=== PATIENT | female | born 1960 | race Caucasian/White ===

== ENCOUNTER → 2016-11-22 | Outpatient (CLI) | payer BC ==
--- NOTE | 2016-11-22 12:35 | XR ---
"EXAMINATION TYPE: XR hand complete LT DATE OF EXAM: 11/22/2016 COMPARISON: NONE HISTORY: Pain TECHNIQUE: Three views are submitted. FINDINGS: The osseous structures are intact. There is narrowing of the PIP, DIP and MCP joints of all digits. M ild subluxation the first digit proximal phalanx relative the metacarpal. There is a subtle lucency a t the base of the middle phalanx fourth digit.. IMPRESSION: 1. Findings suggestive of a volar plate hairline fracture base middle phalanx fourth digit. Correlate with point tenderness. 2. Diffuse arthropathy. A Yellow message has been communicated to Alfonso Dao MD via the [employer] | Critical Result sy stem on 11/22/2016 12:33 PM, Message ID [id number]."
== END ==
LOC: RADXRMAIN 11:23
PROVIDERS: ATTEND Internal Medicine Geriatric Medicine
DX: M19.042 Primary osteoarthritis, left hand (principal)

== ENCOUNTER → 2016-12-16 | Outpatient (CLI) | payer BC ==
[2016-12-16 07:51] LABS: Basophils % (A) 1 %; CH 32.3; Eosinophils # (A) 0.2 k/uL (0-0.7); Eosinophils % (A) 3 %; HCT 41.3 % (34.0-46.0); HDW 2.56; HGB 13.9 gm/dL (11.4-16.0); Luc # (Auto) 0.13; Luc % (Auto) 2; Lymphocytes # (A) 1.6 k/uL (1.0-4.8); Lymphocytes % (A) 29 %; MCH 32.3 pg (25.0-35.0); MCHC 33.7 g/dL (31.0-37.0); MCV 95.6 fL (80.0-100.0); Mean Platelet Volume 6.6; Monocytes # (A) 0.4 k/uL (0-1.0); Monocytes % (A) 6 %; Neutrophils # (A) 3.3 k/uL (1.3-7.7); Neutrophils % (A) 59 %; RBC 4.32 m/uL (3.80-5.40); RDW 12.6 % (11.5-15.5); WBC 5.6 k/uL (3.8-10.6); WBC (Perox) 5.95
[2016-12-16 08:21] LABS: ALT 54 U/L (9-52); AST 36 U/L (14-36); Alkaline Phosphatase 97 U/L (38-126); Anion Gap 10 mmol/L; Blood Urea Nitrogen 17 mg/dL (7-17); Calcium 10.3 mg/dL (8.4-10.2); Carbon Dioxide 26 mmol/L (22-30); Chloride 103 mmol/L (98-107); Cholesterol 142 mg/dL (<200); Glucose 99 mg/dL (74-99); HDL Cholesterol 58 mg/dL (40-60); Non-African American GFR(MDRD) 54 (>60 ml/min/1.73 sqM); Potassium 4.3 mmol/L (3.5-5.1); Sodium 139 mmol/L (137-145); Total Bilirubin 0.9 mg/dL (0.2-1.3); Total Protein 7.4 g/dL (6.3-8.2)
[2016-12-16 11:15] LABS: Hemoglobin A1C 5.2 % (4.2-6.1)
== END | disposition home or self-care (01) ==
LOC: LABWHC1 07:26
PROVIDERS: ATTEND Internal Medicine Geriatric Medicine
DX: E55.9 Vitamin D deficiency, unspecified (principal); I25.10 Atherosclerotic heart disease of native coronary artery without angina pectoris; E78.00 Pure hypercholesterolemia, unspecified; E03.9 Hypothyroidism, unspecified; R73.9 Hyperglycemia, unspecified
CPT/HCPCS: 36415; 80053; 80061; 82306; 83036; 84439; 84443; 85025

== ENCOUNTER → 2017-02-05 | Outpatient (CLI) | payer BC ==
--- NOTE | 2017-02-06 14:05 | MM ---
Reason for exam: screening (asymptomatic). Last mammogram was performed 1 year ago. History: Patient is postmenopausal, history of other cancer, and is nulliparous. Physical Findings: A clinical breast exam by your physician is recommended on an annual basis and results should be correlated with mammographic findings. MG Screening Mammo w CAD Bilateral CC and MLO view(s) were taken. Prior study comparison: February 05, 2016, bilateral MG 3d screening mammo w/cad. February 03, 2015, bilateral MG 3d screening mammo w/cad. The breast tissue is heterogeneously dense. This may lower the sensitivity of mammography. No significant changes when compared with prior studies. ASSESSMENT: Benign, BI-RAD 2 RECOMMENDATION: Routine screening mammogram of both breasts in 1 year.
== END | disposition home or self-care (01) ==
LOC: RADMAMWWP 07:56
PROVIDERS: ATTEND Internal Medicine Geriatric Medicine
DX: Z12.31 Encounter for screening mammogram for malignant neoplasm of breast (principal)

== ENCOUNTER → 2017-11-21 | Outpatient (CLI) | payer BC ==
[2017-11-21 07:48] LABS: Basophils % (A) 1 %; Eosinophils # (A) 0.3 k/uL (0-0.7); Eosinophils % (A) 5 %; HCT 41.2 % (34.0-46.0); HGB 13.9 gm/dL (11.4-16.0); Lymphocytes # (A) 1.3 k/uL (1.0-4.8); Lymphocytes % (A) 21 %; MCH 31.1 pg (25.0-35.0); MCHC 33.7 g/dL (31.0-37.0); MCV 92.2 fL (80.0-100.0); Mean Platelet Volume 7.1; Monocytes # (A) 0.4 k/uL (0-1.0); Monocytes % (A) 7 %; Neutrophils # (A) 3.9 k/uL (1.3-7.7); Neutrophils % (A) 65 %; Platelet Count 247 k/uL (150-450); RBC 4.47 m/uL (3.80-5.40); RDW 12.4 % (11.5-15.5)
[2017-11-21 08:12] LABS: Potassium 4.7 mmol/L (3.5-5.1)
[2017-11-21 08:13] LABS: Albumin 4.2 g/dL (3.5-5.0); Calcium 10.2 mg/dL (8.4-10.2); Total Bilirubin 0.8 mg/dL (0.2-1.3); Total Protein 7.1 g/dL (6.3-8.2)
[2017-11-21 08:23] LABS: T4, Free (Free Thyroxine) 0.87 ng/dL (0.78-2.19)
[2017-11-21 15:57] LABS: Hemoglobin A1C 5.5 % (4.0-6.0)
== END | disposition home or self-care (01) ==
LOC: LABWHC1 07:29
PROVIDERS: ATTEND Internal Medicine Geriatric Medicine
DX: I10 Essential (primary) hypertension (principal); E78.00 Pure hypercholesterolemia, unspecified; E03.9 Hypothyroidism, unspecified; R73.9 Hyperglycemia, unspecified
CPT/HCPCS: 36415; 80053; 80061; 83036; 84439; 84443; 85025

== ENCOUNTER → 2018-02-06 | Outpatient (CLI) | payer BC ==
--- NOTE | 2018-02-06 11:45 | MM ---
Reason for exam: screening (asymptomatic). Last mammogram was performed 1 year ago. History: Patient is postmenopausal, history of other cancer, and is nulliparous. Physical Findings: A clinical breast exam by your physician is recommended on an annual basis and results should be correlated with mammographic findings. MG 3D Screening Mammo W/Cad Bilateral CC and MLO view(s) were taken. Prior study comparison: February 05, 2017, bilateral MG screening mammo w CAD. February 05, 2016, bilateral MG 3d screening mammo w/cad. The breast tissue is heterogeneously dense. This may lower the sensitivity of mammography. There are benign appearing round calcifications bilaterally. There is no discrete abnormality. ASSESSMENT: Benign, BI-RAD 2 RECOMMENDATION: Routine screening mammogram of both breasts in 1 year.
== END ==
LOC: RADMAMWWP 06:57
PROVIDERS: ATTEND Internal Medicine Geriatric Medicine
DX: Z12.31 Encounter for screening mammogram for malignant neoplasm of breast (principal)
CPT/HCPCS: 77063; 77067

== ENCOUNTER 2018-05-21 10:45 | Emergency (ER) | payer BC ==
[2018-05-21 11:07] VITALS: TEMP 98.9
--- NOTE | 2018-05-21 11:59 | ED ---
General Adult HPI - General Chief complaint: Recheck/Abnormal Lab/Rx Stated complaint: High Blood Pressure Source: patient, family, RN notes reviewed Mode of arrival: wheelchair Limitations: no limitations - History of Present Illness Initial comments: Patient is a pleasant 57-year-old female presenting to the emergency Department with complaints of high blood pressure. Onset of symptoms was this morning. Blood pressure was as high as 190/108. Heart rate was 102. Patient did check this several times. Patient admits to not sleeping well last night. No chest pain. No dyspnea. Patient states she does routinely check her blood pressure and this is higher than normal for her. - Related Data Home Medications Medication Instructions Recorded Confirmed Aspirin 162 mg PO HS 03/06/14 05/21/18 Cholecalciferol [Vitamin D3] 5,000 unit PO HS 03/06/14 05/21/18 Citalopram Hydrobromide [CeleXA] 10 mg PO HS 03/06/14 05/21/18 Levothyroxine Sodium [Synthroid] 50 mcg PO DAILY 03/06/14 05/21/18 Lisinopril [Zestril] 10 mg PO HS 03/06/14 05/21/18 Metoprolol Tartrate [Lopressor] 12.5 mg PO DAILY 03/06/14 05/21/18 Multivitamins, Thera [Multivitamin] 1 tab PO DAILY 03/06/14 05/21/18 Nitroglycerin Sl Tabs [Nitrostat] 0.4 mg SUBLINGUAL Q5M PRN 03/06/14 05/21/18 [place]-3 Fatty Acids/Fish Oil [Fish 3 cap PO DAILY 03/06/14 05/21/18 Oil 1,000 mg Softgel] Vits A,C,E/Lutein/Minerals 1 tab PO HS 03/06/14 05/21/18 [Ocuvite with Lutein Tablet] Atorvastatin [Lipitor] 10 mg PO DAILY 05/21/18 05/21/18 Lactobacillus Acidophilus 1 tab PO DAILY 05/21/18 05/21/18 [Acidophilus] Ubidecarenone [Co Q-10] 100 mg PO DAILY 05/21/18 05/21/18 Allergies Allergy/AdvReac Type Severity Reaction Status Date / Time candesartan cilexetil Allergy Rash/Hives Verified 05/21/18 11:42 [From [place]] Review of Systems ROS Statement: Those systems with pertinent positive or pertinent negative responses have been documented in the HPI. ROS Other: All systems not noted in ROS Statement are negative. Constitutional: Denies: fever Eyes: Denies: eye pain ENT: Denies: ear pain Respiratory: Denies: cough, dyspnea Cardiovascular: Denies: chest pain Endocrine: Denies: fatigue Gastrointestinal: Denies: abdominal pain Genitourinary: Denies: dysuria Musculoskeletal: Denies: back pain Skin: Denies: rash Neurological: Denies: headache, weakness, confusion Past Medical History Past Medical History: Hyperlipidemia, Hypertension, Thyroid Disorder History of Any Multi-Drug Resistant Organisms: None Reported Past Surgical History: Cholecystectomy, Heart Catheterization With Stent Additional Past Surgical History / Comment(s): colonoscopy, Past Psychological History: No Psychological Hx Reported Smoking Status: Never smoker Past Alcohol Use History: Rare Past Drug Use History: None Reported General Exam Limitations: no limitations General appearance: alert, in no apparent distress Head exam: Present: atraumatic Eye exam: Present: normal appearance, PERRL, EOMI. Absent: nystagmus ENT exam: Present: normal oropharynx Neck exam: Present: normal inspection Respiratory exam: Present: normal lung sounds bilaterally Cardiovascular Exam: Present: regular rate, normal rhythm GI/Abdominal exam: Present: soft. Absent: tenderness Extremities exam: Present: normal inspection. Absent: pedal edema, calf tenderness Neurological exam: Present: alert, oriented X3, CN II-XII intact. Absent: motor sensory deficit Expanded Neurological exam: Present: protecting the airway Speech: Present: fluid speech, expressive aphasia, anomia Cranial nerves: EOM's Intact: Normal Motor strength exam: RUE: 5, LUE: 5, RLE: 5, LLE: 5 Eye Response: (4) open spontaneously Motor Response: (6) obeys commands Verbal Response: (5) oriented Psychiatric exam: Present: normal affect, normal mood Skin exam: Present: normal color Course Vital Signs 05/21/18 05/21/18 05/21/18 11:05 12:00 12:30 Temperature 98.9 F Pulse Rate 73 58 L Respiratory 16 15 Rate Blood Pressure 155/89 132/97 138/81 O2 Sat by Pulse 100 96 Oximetry 05/21/18 13:00 Temperature Pulse Rate 58 L Respiratory 14 Rate Blood Pressure 106/65 O2 Sat by Pulse 96 Oximetry EKG Findings - EKG Comments: EKG Findings:: 6. Cardiac 59. OK 162. QRS 88. QT 408. QTC 43. Normal axis. Normal QRS. No acute ST change. Medical Decision Making - Medical Decision Making Patient reevaluated and updated. Blood pressure improved. - Lab Data Result diagrams: 05/21/18 11:48 05/21/18 11:48 Lab Results 05/21/18 05/21/18 Range/Units 11:48 11:48 WBC 6.5 (3.8-10.6) k/uL RBC 4.33 (3.80-5.40) m/uL Hgb 13.9 (11.4-16.0) gm/dL Hct 39.9 (34.0-46.0) % MCV 92.1 (80.0-100.0) fL MCH 32.0 (25.0-35.0) pg MCHC 34.7 (31.0-37.0) g/dL RDW 12.9 (11.5-15.5) % Plt Count 234 (150-450) k/uL Neutrophils % 72 % Lymphocytes % 17 % Monocytes % 6 % Eosinophils % 3 % Basophils % 0 % Neutrophils # 4.7 (1.3-7.7) k/uL Lymphocytes # 1.1 (1.0-4.8) k/uL Monocytes # 0.4 (0-1.0) k/uL Eosinophils # 0.2 (0-0.7) k/uL Basophils # 0.0 (0-0.2) k/uL Sodium 140 (137-145) mmol/L Potassium 4.6 (3.5-5.1) mmol/L Chloride 106 (98-107) mmol/L Carbon Dioxide 25 (22-30) mmol/L Anion Gap 9 mmol/L BUN 12 (7-17) mg/dL Creatinine 0.84 (0.52-1.04) mg/dL Est GFR (CKD-EPI)AfAm 88 (>60 ml/min/1.73 sqM) Est GFR (CKD-EPI)NonAf 76 (>60 ml/min/1.73 sqM) Glucose 97 (74-99) mg/dL Calcium 10.5 H (8.4-10.2) mg/dL Magnesium 2.1 (1.6-2.3) mg/dL Total Bilirubin 0.6 (0.2-1.3) mg/dL AST 33 (14-36) U/L ALT 48 (9-52) U/L Alkaline Phosphatase 111 (38-126) U/L Total Protein 7.2 (6.3-8.2) g/dL Albumin 4.4 (3.5-5.0) g/dL - Radiology Data Radiology results: image reviewed (Chest x-ray shows no acute process) Disposition Clinical Impression: Episode of hypertension Disposition: HOME SELF-CARE Condition: Stable Instructions (If sedation given, give patient instructions): Hypertension (ED) Additional Instructions: Please follow-up with primary care physician in the next day or 2 for recheck. Return for uncontrolled blood pressure, weakness, chest pain, worsening or changing symptoms or other concerns. Is patient prescribed a controlled substance at d/c from ED?: No Referrals: Alfonso Dao MD [Primary Care Provider] - 1-2 days Time of Disposition: 13:42
[2018-05-21 12:28] LABS: Albumin 4.4 g/dL (3.5-5.0); Calcium 10.5 mg/dL (8.4-10.2); Magnesium 2.1 mg/dL (1.6-2.3); Potassium 4.6 mmol/L (3.5-5.1); Total Bilirubin 0.6 mg/dL (0.2-1.3); Total Protein 7.2 g/dL (6.3-8.2)
[2018-05-21 12:33] LABS: Basophils % (A) 0 %; Eosinophils # (A) 0.2 k/uL (0-0.7); Eosinophils % (A) 3 %; HCT 39.9 % (34.0-46.0); HGB 13.9 gm/dL (11.4-16.0); Lymphocytes # (A) 1.1 k/uL (1.0-4.8); Lymphocytes % (A) 17 %; MCHC 34.7 g/dL (31.0-37.0); MCV 92.1 fL (80.0-100.0); Mean Platelet Volume 6.3; Monocytes # (A) 0.4 k/uL (0-1.0); Monocytes % (A) 6 %; Neutrophils # (A) 4.7 k/uL (1.3-7.7); Neutrophils % (A) 72 %; Platelet Count 234 k/uL (150-450); RBC 4.33 m/uL (3.80-5.40); RDW 12.9 % (11.5-15.5); WBC 6.5 k/uL (3.8-10.6)
--- NOTE | 2018-05-21 12:49 | XR ---
EXAMINATION TYPE: XR chest 2V DATE OF EXAM: 05/21/2018 COMPARISON: NONE TECHNIQUE: PA and lateral views submitted. HISTORY: Hypertension FINDINGS: The lungs are clear and there is no pneumothorax, pleural effusion, or focal pneumonia. Degenerativ e change spine. Surgical clips in the abdomen. No overt failure. IMPRESSION: 1. No acute process.
[2018-05-21 13:59] VITALS: BP 119/76; PULSE 70; RESP 16
== END 2018-05-21 13:57 | disposition home or self-care (01) ==
LOC: EC 10:45
DX: I10 Essential (primary) hypertension (principal); E78.5 Hyperlipidemia, unspecified; E07.9 Disorder of thyroid, unspecified; Z88.8 Allergy status to other drugs, medicaments and biological substances; Z79.82 Long term (current) use of aspirin; Z79.890 Hormone replacement therapy; Z79.899 Other long term (current) drug therapy; Z95.5 Presence of coronary angioplasty implant and graft
CPT/HCPCS: 36415; 71046; 80053; 83735; 85025; 93005; 99283

== ENCOUNTER → 2018-07-20 | Outpatient (CLI) | payer BC ==
[2018-07-20 08:37] LABS: Basophils % (A) 1 %; Eosinophils # (A) 0.2 k/uL (0-0.7); Eosinophils % (A) 3 %; HCT 40.8 % (34.0-46.0); HGB 13.9 gm/dL (11.4-16.0); Lymphocytes # (A) 1.7 k/uL (1.0-4.8); Lymphocytes % (A) 30 %; MCH 31.9 pg (25.0-35.0); MCHC 34.1 g/dL (31.0-37.0); MCV 93.3 fL (80.0-100.0); Mean Platelet Volume 6.5; Monocytes # (A) 0.4 k/uL (0-1.0); Monocytes % (A) 6 %; Neutrophils # (A) 3.4 k/uL (1.3-7.7); Neutrophils % (A) 57 %; Platelet Count 270 k/uL (150-450); RBC 4.38 m/uL (3.80-5.40); RDW 12.7 % (11.5-15.5); WBC 5.9 k/uL (3.8-10.6)
[2018-07-20 16:36] LABS: Albumin 4.5 g/dL (3.80-4.90); Albumin/Globulin Ratio 2.25 (1.60-3.17); Anion Gap 8.8 mmol/L (4.00-12.00); Calcium 9.7 mg/dL (8.7-10.3); Carbon Dioxide 26.2 mmol/L (21.6-31.8); LDL Cholesterol,Calculated 70.4 mg/dL (0.0-131.0); Potassium 4.7 mmol/L (3.5-5.5); Total Bilirubin 0.9 mg/dL (0.2-1.2); Total Protein 6.5 g/dL (6.2-8.2); VLDL Calculation 24.6 mg/dL (5.00-40.00)
[2018-07-20 16:44] LABS: T4, Free (Free Thyroxine) 1.1 ng/dL (0.80-1.80)
== END | disposition home or self-care (01) ==
LOC: LABWHC1 07:43
PROVIDERS: ATTEND Internal Medicine Geriatric Medicine
DX: Z00.00 Encounter for general adult medical examination without abnormal findings (principal); I25.118 Atherosclerotic heart disease of native coronary artery with other forms of angina pectoris; R73.9 Hyperglycemia, unspecified
CPT/HCPCS: 36415; 80053; 80061; 83036; 84439; 84443; 85025

== ENCOUNTER → 2019-01-01 | Day surgery (SDC) | payer BC ==
[2018-12-29 16:02] VITALS: BMI 34.4
--- NOTE | 2018-12-31 18:32 | P.GSHP ---
History of Present Illness H&P Date: 01/01/19 CHIEF COMPLAINT: GERD and colon screen HISTORY OF PRESENT ILLNESS: The patient is a 58-year-old female who presents with gastroesophageal reflux disease and need for colon screen. Upper and lower endoscopy were offered for further evaluation and management. PAST MEDICAL HISTORY: Please see list. PAST SURGICAL HISTORY: Please see list. MEDICATIONS: Please see list. ALLERGIES: Please see list. SOCIAL HISTORY: No illicit drug use FAMILY HISTORY: No reports of Crohn disease or ulcerative colitis. REVIEW OF ORGAN SYSTEMS: CONSTITUTIONAL: No reports of fevers or chills. GI: Denies any blood in stools or constipation. PHYSICAL EXAM: VITAL SIGNS: Stable GENERAL: Well-developed pleasant in no acute distress. HEENT: No scleral icterus. Extraocular movements grossly intact. Moist buccal mucosa. NECK: Supple without lymphadenopathy. CHEST: Unlabored respirations. Equal bilateral excursions. CARDIOVASCULAR: Regular rate and rhythm. Distal 2+ pulses. ABDOMEN: Soft, nondistended. MUSCULOSKELETAL: No clubbing, cyanosis, or edema. ASSESSMENT: 1. Gastroesophageal reflux disease 2. Colon screen. PLAN: 1. Recommend proceeding with an upper and lower endoscopy Past Medical History Past Medical History: GERD/Reflux, Hyperlipidemia, Hypertension, Thyroid Disorder History of Any Multi-Drug Resistant Organisms: None Reported Past Surgical History: Cholecystectomy, Heart Catheterization With Stent Additional Past Surgical History / Comment(s): egd,colonoscopy, heart stent Past Anesthesia/Blood Transfusion Reactions: No Reported Reaction, Family History of Problems w/ Anesthesia, Motion Sickness Additional Past Anesthesia/Blood Transfusion Reaction / Comment(s): sister takes a long time coming out of anesthesia Date of Last Stent Placement:: 01-26-2013 Smoking Status: Never smoker - Past Family History Mother Family Medical History: No Reported History Sister(s) Family Medical History: Cancer Additional Family Medical History / Comment(s): liver and colon CA Medications and Allergies Home Medications Medication Instructions Recorded Confirmed Type Aspirin 162 mg PO HS 03/06/14 12/29/18 History Cholecalciferol [Vitamin D3] 5,000 unit PO HS 03/06/14 12/29/18 History Citalopram Hydrobromide [CeleXA] 10 mg PO HS 03/06/14 12/29/18 History Levothyroxine Sodium [Synthroid] 50 mcg PO MOTUWEFRSA 03/06/14 12/29/18 History Lisinopril [Zestril] 10 mg PO HS 03/06/14 12/29/18 History Metoprolol Tartrate [Lopressor] 12.5 mg PO BID 03/06/14 12/29/18 History Multivitamins, Thera [Multivitamin] 1 tab PO DAILY 03/06/14 12/29/18 History Nitroglycerin Sl Tabs [Nitrostat] 0.4 mg SUBLINGUAL Q5M PRN 03/06/14 12/29/18 History [place]-3 Fatty Acids/Fish Oil [Fish 3 cap PO DAILY 03/06/14 12/29/18 History Oil 1,000 mg Softgel] Vits A,C,E/Lutein/Minerals 1 tab PO HS 03/06/14 12/29/18 History [Ocuvite with Lutein Tablet] Atorvastatin [Lipitor] 10 mg PO HS 05/21/18 12/29/18 History Lactobacillus Acidophilus 1 tab PO DAILY 05/21/18 12/29/18 History [Acidophilus] Ubidecarenone [Co Q-10] 100 mg PO DAILY 05/21/18 12/29/18 History Levothyroxine Sodium [Synthroid] 75 mcg PO SUTH 12/29/18 12/29/18 History Pantoprazole Sodium [Protonix] 20 mg PO DAILY 12/29/18 12/29/18 History Allergies Allergy/AdvReac Type Severity Reaction Status Date / Time candesartan cilexetil Allergy Rash/Hives Verified 12/29/18 15:54 [From Eric]
[~2019-01-01] MED LIST: LACTATED RINGERS 1,000 ML IV SCH; LIDOCAINE 1% 20 ML VIAL (10MG/ML) FOR IV START INTRADERMA PRN; PROPOFOL 10 MG/ML 20 ML VIAL IV ONE
[2019-01-01 06:41] VITALS: TEMP 97.5
--- NOTE | 2019-01-01 07:40 | P.PCN ---
Date of Procedure: 01/01/19 Description of Procedure: PREOPERATIVE DIAGNOSIS: Gastroesophageal reflux disease. POSTOPERATIVE DIAGNOSIS: Gastritis. Gastroesophageal reflux disease. OPERATION: Esophagogastroduodenoscopy with biopsies along antrum. SURGEON: Flor Badillo MD ANESTHESIA: MAC. INDICATIONS: The patient is a 58-year-old female who presents with a history of reflux disease. Benefits and risks of the procedure were described. Informed consent was obtained. DESCRIPTION: The patient was brought into the endoscopy suite and laid in the left lateral decubitus position. An Olympus gastroscope was passed along the posterior oropharynx down to the distal esophagus where the squamocolumnar junction was encountered at 36 cm from the incisors. The stomach was entered and no bile reflux was found. Additional findings are listed below. Biopsies with cold forceps were obtained of the antrum. The first through third portion of the duodenum was examined and unremarkable. Hypertensive pylorus identified. Retroflexion of the scope confirmed Hill grade 2 lower esophageal valve. The squamocolumnar junction demonstrated LA grade B erosive esophagitis. The stomach was desufflated. The patient tolerated the procedure well. FINDINGS: Squamocolumnar junction 36 cm from the incisors. Diaphragmatic hiatus at 36 cm. Hill grade 2 lower esophageal valve. LA grade A erosive esophagitis. No active duodenitis. Chronic gastritis Hypertensive pylorus identified RECOMMENDATIONS: Upper endoscopy as needed.
--- NOTE | 2019-01-01 07:44 | P.PCN ---
Date of Procedure: 01/01/19 Description of Procedure: PREOPERATIVE DIAGNOSIS: Family history of colon cancer, sister Colonoscopy screening. POSTOPERATIVE DIAGNOSIS: Family history of colon cancer, sister Colonoscopy screening. Diverticulosis, scattered. OPERATION: Colonoscopy to the ascending colon. SURGEON: Flor Badillo MD. ANESTHESIA: MAC. INDICATIONS: The patient is a 58-year-old female who presents for colonoscopy screening. Last colonoscopy over 5 years ago. Benefits and risks were described and informed consent was obtained. DESCRIPTION OF PROCEDURE: The patient had undergone Suprep. She had been brought into the operating room and laid in the left lateral decubitus position. After adequate intravenous sed ation, the rectum was examined with 2% lidocaine jelly. No external hemorrhoids were encountered. The rectal tone was within normal limits. No lesions were palpated in the rectal vault. The colon was extremely long and redundant. An Olympus colonoscope was advanced to the ascending colon despite abdominal pressure and provocative maneuvers. The prep was excellent with clear visualization of the mucosal folds. The scope was removed with visualization of each mucosal fold. Scattered diverticulosis was encountered. No colonic polyps were found. No evidence of focal colitis was found. Retroflexion of the scope demonstrated grade 1 internal hemorrhoids without active bleeding or inflammation. The colon was desufflated. The patient had tolerated the procedure well. Withdrawal time was over 6 minutes. FINDINGS: Aronchick preparation quality scale 1 (1-5) Internal hemorrhoids, grade 1 No external prolapsed hemorrhoids. No arteriovenous malformations. No adenomatous polyps. No focal colitis. RECOMMENDATIONS: Will need completion barium enema Follow-up 5 years, 2023 or Cologuard Plan - Discharge Summary Discharge Rx Participant: No New Discharge Prescriptions: No Action [employer]-3 Fatty Acids/Fish Oil [Fish Oil 1,000 mg Softgel] 3 cap PO DAILY Multivitamins, Thera [Multivitamin] 1 tab PO DAILY Metoprolol Tartrate [Lopressor] 12.5 mg PO BID Lisinopril [Zestril] 10 mg PO HS Levothyroxine Sodium [Synthroid] 50 mcg PO MOTUWEFRSA Citalopram Hydrobromide [CeleXA] 10 mg PO HS Cholecalciferol [Vitamin D3] 5,000 unit PO HS Aspirin 162 mg PO HS Vits A,C,E/Lutein/Minerals [Ocuvite with Lutein Tablet] 1 tab PO HS Nitroglycerin Sl Tabs [Nitrostat] 0.4 mg SUBLINGUAL Q5M PRN PRN Reason: Chest Pain Ubidecarenone [Co Q-10] 100 mg PO DAILY Atorvastatin [Lipitor] 10 mg PO HS Lactobacillus Acidophilus [Acidophilus] 1 tab PO DAILY Levothyroxine Sodium [Synthroid] 75 mcg PO SUTH Pantoprazole Sodium [Protonix] 20 mg PO DAILY Discharge Medication List Aspirin 162 mg PO HS 03/06/14 [History] Cholecalciferol [Vitamin D3] 5,000 unit PO HS 03/06/14 [History] Citalopram Hydrobromide [CeleXA] 10 mg PO HS 03/06/14 [History] Levothyroxine Sodium [Synthroid] 50 mcg PO MOTUWEFRSA 03/06/14 [History] Lisinopril [Zestril] 10 mg PO HS 03/06/14 [History] Metoprolol Tartrate [Lopressor] 12.5 mg PO BID 03/06/14 [History] Multivitamins, Thera [Multivitamin] 1 tab PO DAILY 03/06/14 [History] Nitroglycerin Sl Tabs [Nitrostat] 0.4 mg SUBLINGUAL Q5M PRN 03/06/14 [History] [employer]-3 Fatty Acids/Fish Oil [Fish Oil 1,000 mg Softgel] 3 cap PO DAILY 03/06/14 [History] Vits A,C,E/Lutein/Minerals [Ocuvite with Lutein Tablet] 1 tab PO HS 03/06/14 [History] Atorvastatin [Lipitor] 10 mg PO HS 05/21/18 [History] Lactobacillus Acidophilus [Acidophilus] 1 tab PO DAILY 05/21/18 [History] Ubidecarenone [Co Q-10] 100 mg PO DAILY 05/21/18 [History] Levothyroxine Sodium [Synthroid] 75 mcg PO SUTH 12/29/18 [History] Pantoprazole Sodium [Protonix] 20 mg PO DAILY 12/29/18 [History]
[2019-01-01 08:07] VITALS: BP 125/75; PULSE 56; RESP 18
--- NOTE | 2019-01-01 10:05 | FL ---
EXAMINATION TYPE: FL barium enema DATE OF EXAM: 01/01/2019 COMPARISON: Prior barium enema study June 24, 2011. HISTORY: Incomplete colonoscopy. TECHNIQUE: A double contrast barium enema study is performed. A total of 2 minutes 9 seconds fluoros copic time was utilized during procedure. 22 spot images are saved. FINDINGS: Cavity Pump Operator view of the abdomen shows overall non-obstructive bowel gas pattern. Scattered pelvi c phleboliths are redemonstrated. Surgical clips right upper quadrant are presumed to product of chol ecystectomy. There is successful retrograde filling to the cecum Appendix was filled and appeared normal. The terminal ileum was not refluxed. There is redemonstration of markedly redundant sigmoid colon making evaluation for polyps suboptimal. Occasional scattered colonic diverticula are present including at level of the right colon. No obstr ucting or constricting lesion is seen. There is a tortuous transverse colon noted. IMPRESSION: No obstructing or constricting lesion is evident. Successful filling to the cecum.
== END | disposition home or self-care (01) ==
LOC: ORWHC2ENDO 06:00
PROVIDERS: ATTEND Surgery Plastic and Reconstructive Surgery
DX: Z12.11 Encounter for screening for malignant neoplasm of colon (principal); K57.30 Diverticulosis of large intestine without perforation or abscess without bleeding; K64.0 First degree hemorrhoids; Q43.8 Other specified congenital malformations of intestine; K29.50 Unspecified chronic gastritis without bleeding; K21.0 Gastro-esophageal reflux disease with esophagitis; K22.10 Ulcer of esophagus without bleeding; K31.89 Other diseases of stomach and duodenum; Z80.0 Family history of malignant neoplasm of digestive organs; E78.5 Hyperlipidemia, unspecified; I10 Essential (primary) hypertension; E07.9 Disorder of thyroid, unspecified; Z79.82 Long term (current) use of aspirin; Z79.890 Hormone replacement therapy; Z79.899 Other long term (current) drug therapy; Z90.49 Acquired absence of other specified parts of digestive tract; Z95.5 Presence of coronary angioplasty implant and graft; Z88.8 Allergy status to other drugs, medicaments and biological substances
CPT/HCPCS: 88305; 74270; 43239; J2704; G0105; 45378

== ENCOUNTER → 2019-02-11 | Outpatient (CLI) | payer BC ==
--- NOTE | 2019-02-12 09:28 | MM ---
Reason for exam: screening (asymptomatic). Last mammogram was performed 1 year ago. History: Patient is postmenopausal, history of other cancer, and is nulliparous. Physical Findings: A clinical breast exam by your physician is recommended on an annual basis and results should be correlated with mammographic findings. MG 3D Screening Mammo W/Cad Bilateral CC and MLO view(s) were taken. Prior study comparison: February 06, 2018, bilateral MG 3d screening mammo w/cad. February 05, 2017, bilateral MG screening mammo w CAD. The breast tissue is heterogeneously dense. This may lower the sensitivity of mammography. Medial asymmetric density incompletely disperses on 3D in the right breast, new from older priors. ASSESSMENT: Incomplete: need additional imaging evaluation, BI-RAD 0 RECOMMENDATION: Special view mammogram of the right breast. (3D) If lesion persists on supplemental views, image directed ultrasound is recommended. [facility] will attempt to contact patient to return for supplemental views and ultrasound if indicated.
== END | disposition home or self-care (01) ==
LOC: RADMAMWWP 06:50
PROVIDERS: ATTEND Internal Medicine Geriatric Medicine
DX: Z12.31 Encounter for screening mammogram for malignant neoplasm of breast (principal)
CPT/HCPCS: 77063; 77067

== ENCOUNTER → 2019-02-11 | Outpatient (CLI) | payer BC ==
--- NOTE | 2019-02-11 22:31 | CONS ---
CONSULTATION DATE OF SERVICE: 02/11/2019 58-year-old lady has been evaluated in the sleep center for possible obstructive sleep apnea-hypopnea syndrome. HISTORY OF PRESENT ILLNESS/SLEEP WAKE EVALUATION: SLEEP SCHEDULE: Patient's usual sleep schedule from 10 to 11 pm until 5 or 7 am and on weekdays from from around 11 to midnight until 8 or 9 a.m. on weekends. FALLING ASLEEP: No problem with falling asleep. No TV in bedroom. DURING SLEEP: She sleeps in different positions and according to her , she has loud snoring and witnessed episodes of stopped breathing during sleep. She also has symptoms of restless legs, sleep talking, and sweating. She wakes up from sleep once with nocturia. DURING THE DAY/SLEEP WAKE EVALUATION: In the morning she wakes up tired, falling asleep during the day, has episodes of irritability. [place] Sleepiness Scale significantly increased to 18. She has taken naps once a day, usually around 6-7:00 pm. Usually no vivid dreams during naps. No history of hypnagogic hallucinations, sleep paralysis or cataplexy. PAST MEDICAL HISTORY: Positive for hypertension, coronary artery disease, hyperlipidemia, hypothyroidism. PAST SURGICAL HISTORY: Stent insertion to coronary arteries, cholecystectomy, ganglion cyst removed. MEDICATIONS: Metoprolol, levothyroxine, atorvastatin, lisinopril, citalopram, aspirin, and pantoprazole. SOCIAL HISTORY: Negative for smoking. Alcohol consumption rarely. FAMILY HISTORY: Hypertension, angina, heart problems, hyperlipidemia, stroke, sleep apnea, headaches, cancer, thyroid problems, diabetes, restless legs during. PHYSICAL EXAM: Patient in no distress. BP is 138/59, HR 78, RR 16, height 5 feet 1 -1/4 inches, weight 194.8 pounds, body mass index 34.7, temperature 98.4, oxygen saturation on room air 96%. Oropharynx: Low position of soft palate. Mallampati 3. Restriction of nasal breathing. Neck 15.5 inches in circumference. NECK: Supple, no JVD. Thyroid is not palpable. LUNGS: Clear to percussion and to auscultation. Good air exchange. No wheezing or rhonchi. HEART: S1, S2 regular. No murmurs, gallops, or rubs. ABDOMEN: Slightly obese. Soft and nontender. Bowel sounds are present. No organomegaly appreciated. EXTREMITIES: No clubbing or cyanosis. RADIOTELEGRAPHIST: Awake, alert, and oriented X3. Cranial nerves 2 to 7 intact. There is no fasciculation or atrophy. noted. No focal deficits observed. IMPRESSION: 1. Snoring witnessed episodes of stopped breathing during sleep. Low position of soft palate, Mallampati 3, feeling tiredness and sleepiness during the day. significant increasing Wainwright Sleepiness Scale to 18. Obstructive sleep apnea- hypopnea syndrome. 2. Hypertension. 3. Coronary artery disease, status post stent insertion. 4. Hyperlipidemia. 5. Hypothyroidism. 6. Status post cholecystectomy. 7. Status post ganglion cyst removed. PLAN: 1. Polysomnography for evaluation of patient's breathing during sleep. 2. CPAP/BiPAP titration if sleep study confirms obstructive sleep apnea-hypopnea syndrome. 3. Preferable position during sleep on the side. 4. No driving if patient feels any sleepiness. 5. I will see patient for follow up visit to explain results of testing and following plan. Thank you very much for referring this patient for consultation. Sincerely, Fausto Hatch MD, PhD, FAASM Diplomat of [place] [place] [employer] Computer Aided Design Technician of [facility] [place] MMODL / IJN: [id number] /
== END ==
LOC: SLEEP 15:40
PROVIDERS: ATTEND Internal Medicine
DX: G47.33 Obstructive sleep apnea (adult) (pediatric) (principal); I10 Essential (primary) hypertension; I25.10 Atherosclerotic heart disease of native coronary artery without angina pectoris; E78.5 Hyperlipidemia, unspecified; E03.9 Hypothyroidism, unspecified; Z90.49 Acquired absence of other specified parts of digestive tract; Z98.890 Other specified postprocedural states; Z79.899 Other long term (current) drug therapy; Z95.5 Presence of coronary angioplasty implant and graft; Z79.82 Long term (current) use of aspirin

== ENCOUNTER → 2019-02-19 | Outpatient (CLI) | payer BC ==
--- NOTE | 2019-02-22 08:10 | MM ---
Reason for exam: additional evaluation requested from abnormal screening. Last mammogram was performed less than 1 month ago. History: Patient is postmenopausal, history of other cancer, and is nulliparous. Took hormonal contraceptives beginning at age 16. Physical Findings: Nurse did not find any significant physical abnormalities on exam. MG 3D Work Up W/Cad RT Spot compression CC and LM view(s) were taken of the right breast. Prior study comparison: February 11, 2019, bilateral MG 3d screening mammo w/cad. February 06, 2018, bilateral MG 3d screening mammo w/cad. The breast tissue is heterogeneously dense. This may lower the sensitivity of mammography. There is no discrete abnormality including area of concern. These results were verbally communicated with the patient and result sheet given to the patient on 02/19/19. ASSESSMENT: Probably benign, BI-RAD 3 RECOMMENDATION: Follow-up diagnostic mammogram of the right breast in 6 months.
== END ==
LOC: RADMAMWWP 14:55
PROVIDERS: ATTEND Internal Medicine Geriatric Medicine
DX: R92.8 Other abnormal and inconclusive findings on diagnostic imaging of breast (principal)
CPT/HCPCS: 77061; 77065

== ENCOUNTER → 2019-03-16 | Outpatient (CLI) | payer BC ==
[2019-03-16 08:01] LABS: Basophils % (A) 1 %; Eosinophils # (A) 0.2 k/uL (0-0.7); Eosinophils % (A) 4 %; HCT 37.9 % (34.0-46.0); HGB 13.3 gm/dL (11.4-16.0); Lymphocytes # (A) 1.7 k/uL (1.0-4.8); Lymphocytes % (A) 28 %; MCH 32.2 pg (25.0-35.0); MCHC 35.2 g/dL (31.0-37.0); MCV 91.5 fL (80.0-100.0); Mean Platelet Volume 6.8; Monocytes # (A) 0.3 k/uL (0-1.0); Monocytes % (A) 6 %; Neutrophils # (A) 3.5 k/uL (1.3-7.7); Neutrophils % (A) 59 %; Platelet Count 252 k/uL (150-450); RBC 4.14 m/uL (3.80-5.40); RDW 12.3 % (11.5-15.5)
[2019-03-16 12:01] LABS: African American GFR (CKD) 80.5 (60.0-200.0); Albumin 4.1 g/dL (3.80-4.90); Albumin/Globulin Ratio 2.05 (1.60-3.17); Anion Gap 5.6 mmol/L (4.00-12.00); BUN/Creat Ratio 17.78 Ratio (12.00-20.00); Calcium 9.5 mg/dL (8.7-10.3); Carbon Dioxide 25.4 mmol/L (21.6-31.8); Chol/HDL Ratio 2.8; LDL Cholesterol,Calculated 61.6 mg/dL (0.0-131.0); Non-African American GFR(CKD) 69.5 (60.0-200.0); Potassium 4.4 mmol/L (3.5-5.5); Total Bilirubin 0.6 mg/dL (0.2-1.2); Total Protein 6.1 g/dL (6.2-8.2); VLDL Calculation 28.4 mg/dL (5.00-40.00)
== END | disposition home or self-care (01) ==
LOC: LABWHC1 07:14
PROVIDERS: ATTEND Internal Medicine Geriatric Medicine
DX: I25.118 Atherosclerotic heart disease of native coronary artery with other forms of angina pectoris (principal); R73.9 Hyperglycemia, unspecified; E03.9 Hypothyroidism, unspecified
CPT/HCPCS: 36415; 80053; 80061; 83036; 84439; 84443; 85025

== ENCOUNTER → 2019-09-08 | Outpatient (CLI) | payer BC ==
--- NOTE | 2019-09-08 19:02 | SFUN ---
SLEEP CENTER FOLLOW UP NOTE DATE OF SERVICE: 09/08/2019 This patient is a 59-year-old lady who has been followed in Sleep Center for treatment of obstructive sleep apnea-hypopnea syndrome. Recently the patient had a diagnostic sleep study which showed severe sleep apnea and then she had CPAP titration and her respiration was normalized. Today is her first visit after being started on treatment with CPAP. Patient is able to use the machine without significant problems, using it all night. Sometimes she believes she opens her mouth. She has nasal pillows and some episodes of snoring. Her [place] Sleepiness Scale today is 5. I checked the patient's CPAP unit. Range of pressure is from 5 to 14. Usage is 30/30 nights for more than 4 hours. Average usage is 6.6 hours per night. Apnea-hypopnea index 4.6, which is in normal range. Leak up to 20 L/minute. Again, patient possibly opens her mouth. MEDICATIONS: Metoprolol, levothyroxine, atorvastatin, lisinopril, citalopram, aspirin, pantoprazole. PHYSICAL EXAMINATION: GENERAL: A pleasant patient in no distress. VITAL SIGNS: BP 143/77, HR 64, RR 16, weight 191, temperature 98.1. Oxygen saturation at room air 98%. HEENT: PERRLA, EOMI. Evaluation of oropharynx showed tongue protrudes midline. NECK: Supple. No JVD. Thyroid is not palpable. LUNGS: Clear to percussion and to auscultation. Good air exchange. No wheezing or rhonchi. HEART: S1, S2 regular. No murmurs, gallops or rubs. ABDOMEN: Soft and nontender. Bowel sounds are present. No organomegaly. EXTREMITIES: No clubbing or cyanosis. OUTGOING INSPECTOR: Awake, alert, and oriented X3. Cranial nerves 2 to 7 intact. There is no fasciculation or atrophy. noted. No focal deficits observed. IMPRESSION: 1. Severe obstructive sleep apnea-hypopnea syndrome. The patient demonstrated good compliance with treatment, benefitting from treatment. 2. Periodic limb movements during diagnostic night. 3. Hypertension. 4. Coronary artery disease. 5. Hyperlipidemia. 6. Hypothyroidism. 7. Status post cholecystectomy. PLAN: 1. Prescription for chin strap. 2. Continue to use CPAP equipment every night. 3. Losing weight. 4. Sleep hygiene with regular time in bed for at least 7-1/2 to 8 hours. 5. No driving if feeling sleepiness. 6. Follow-up visit in 6 months, or earlier if patient has any problems. Thank you very much for allowing me to participate in the management of your patient. Sincerely, Fausto Hatch MD, PhD, FAASM Diplomat of [place] Board of Medical Specialties [place] Board of Internal Medicine Numerical Tool Programmer of [facility] [place] MMODL / OFELIAN: [id number] /
== END | disposition home or self-care (01) ==
LOC: SLEEP 15:41
PROVIDERS: ATTEND Internal Medicine
DX: G47.33 Obstructive sleep apnea (adult) (pediatric) (principal); I10 Essential (primary) hypertension; I25.10 Atherosclerotic heart disease of native coronary artery without angina pectoris; E78.5 Hyperlipidemia, unspecified; E03.9 Hypothyroidism, unspecified; Z90.49 Acquired absence of other specified parts of digestive tract; G47.61 Periodic limb movement disorder; Z79.82 Long term (current) use of aspirin; Z79.899 Other long term (current) drug therapy

== ENCOUNTER → 2019-10-21 | Outpatient (CLI) | payer BC ==
--- NOTE | 2019-10-22 09:56 | MM ---
Reason for exam: follow-up at short interval from prior study. Last mammogram was performed 8 months ago. History: Patient is postmenopausal, history of other cancer, and is nulliparous. Took hormonal contraceptives for 22 years beginning at age 16. Physical Findings: Nurse did not find any significant physical abnormalities on exam. MG 3D Diag Mammo W/Cad RT CC and MLO view(s) were taken of the right breast. Prior study comparison: February 19, 2019, right breast MG 3d work up w/cad RT. February 11, 2019, bilateral MG 3d screening mammo w/cad. The breast tissue is heterogeneously dense. This may lower the sensitivity of mammography. There is no discrete abnormality. No significant new findings when compared with previous films. These results were verbally communicated with the patient and result sheet given to the patient on 10/21/19. ASSESSMENT: Benign, BI-RAD 2 RECOMMENDATION: Return to routine screening mammogram schedule for both breasts. Back on schedule for January 2020.
== END | disposition home or self-care (01) ==
LOC: RADMAMWWP 10:58
PROVIDERS: ATTEND Internal Medicine Geriatric Medicine
DX: R92.2 Inconclusive mammogram (principal)
CPT/HCPCS: 77061; 77065

== ENCOUNTER → 2020-03-02 | Outpatient (CLI) | payer BC ==
--- NOTE | 2020-03-02 17:50 | SFUN ---
SLEEP CENTER FOLLOW UP NOTE DATE OF SERVICE: 03/02/2020 This patient is a 59-year-old lady who has been followed in Sleep Center for treatment of obstructive sleep apnea-hypopnea syndrome. The patient successfully is continuing to use her CPAP equipment every night. She does not complain of any problems with the mask fitting, pressure or humidification. [place] Sleepiness Scale today is 10, which is borderline. The patient reported that she was under stress for the last period of time related to the health of her . I checked her CPAP unit. It is in automatic regimen. Range of the pressure is from 5 to 14. The average pressure is 12.4 cm of water. Usage is 28/30 nights for more than 4 hours with average usage 6.1 hours per night, which is good compliance. Leak is 24 L/minute, which is slightly high. Apnea-hypopnea index is 5.0, which is borderline. MEDICATIONS: 1. Aspirin 81 mg once a day. 2. Metoprolol 12.5 mg twice a day. 3. Atorvastatin 10 mg once a day. 4. Levothyroxine 25 mcg once a day, and on and Friday the dose is 12.5 mcg. 5. Citalopram 10 mg once a day. 6. Lisinopril 10 mg once a day. 7. Propranolol 10 mg once a day. 8. Xanax mg on p.r.n. basis. PHYSICAL EXAMINATION: GENERAL: A pleasant patient in no distress. VITAL SIGNS: BP 141/72, HR 78, RR 15, height 5 feet 2 inches, weight 193, BMI 35.2, temperature 97.6, oxygen saturation at room air 97%. HEENT: PERRLA, EOMI. Evaluation of oropharynx showed tongue protrudes midline. NECK: Supple. No JVD. Thyroid is not palpable. LUNGS: Clear to percussion and to auscultation. Good air exchange. No wheezing or rhonchi. HEART: S1, S2 regular. No murmurs, gallops or rubs. ABDOMEN: Soft and nontender. Bowel sounds are present. No organomegaly appreciated. EXTREMITIES: No clubbing or cyanosis. TRANSLATOR AND INTERPRETER: Awake, alert, and oriented X3. Cranial nerves 2 to 7 intact. There is no fasciculation or atrophy. noted. No focal deficits observed. IMPRESSION: 1. Obstructive sleep apnea-hypopnea syndrome in severe range. The patient demonstrated great compliance with treatment, benefitting from treatment. 2. History of periodic limb movements during diagnostic sleep study. No complaints of leg movements at night. 3. Hypertension. 4. Coronary artery disease. 5. Hyperlipidemia. 6. Hypothyroidism. 7. Status post cholecystectomy. PLAN: 1. Patient will continue to use PAP equipment every night for the whole night. 2. Sleep hygiene with regular time in bed for at least 7-1/2 to 8 hours. 3. Precautions related to driving. No driving if feeling sleepiness. 4. I will maintain all necessary prescription for PAP supplies including mask, tube, filters. 5. Watching weight. 6. No driving if feeling sleepiness. 7. Follow-up visit in 6 months or earlier if patient has any problems. Thank you very much for allowing me to participate in the management of your patient. Sincerely, Fausto Hatch MD, PhD, FAASM Diplomat of [place] [employer] Specialties [place] [employer] of Internal Medicine Production Estimator of [facility] [place] MMODL / OFELIAN: [id number] /
== END | disposition home or self-care (01) ==
LOC: SLEEP 16:59
PROVIDERS: ATTEND Internal Medicine
DX: G47.33 Obstructive sleep apnea (adult) (pediatric) (principal); I10 Essential (primary) hypertension; I25.10 Atherosclerotic heart disease of native coronary artery without angina pectoris; E78.5 Hyperlipidemia, unspecified; E03.9 Hypothyroidism, unspecified; Z90.49 Acquired absence of other specified parts of digestive tract; Z79.82 Long term (current) use of aspirin; Z79.890 Hormone replacement therapy; Z79.899 Other long term (current) drug therapy; Z99.89 Dependence on other enabling machines and devices

== ENCOUNTER 2020-03-05 14:03 | Emergency (ER) | payer BC ==
[2020-03-05 14:10] VITALS: BP 146/81; PULSE 84; RESP 18; TEMP 98.7
--- NOTE | 2020-03-05 14:26 | ED ---
Recheck HPI - General Chief Complaint: Recheck/Abnormal Lab/Rx Stated Complaint: COVID Test Time Seen by Provider: 03/05/20 14:12 Source: patient Mode of arrival: ambulatory Limitations: no limitations - History of Present Illness Initial Comments: 59 year female presenting for cc of needs covid swab. pt states her tested positive today. she states that her place of employment needs a covid swab before she can return. patient states that she doesnt have symptoms. patient denies additional concerns - Related Data Home Medications Medication Instructions Recorded Confirmed Aspirin 162 mg PO HS 03/06/14 01/01/19 Cholecalciferol [Vitamin D3] 5,000 unit PO HS 03/06/14 01/01/19 Citalopram Hydrobromide [CeleXA] 10 mg PO HS 03/06/14 01/01/19 Levothyroxine Sodium [Synthroid] 50 mcg PO [id number] 03/06/14 01/01/19 Metoprolol Tartrate [Lopressor] 12.5 mg PO BID 03/06/14 01/01/19 Multivitamins, Thera [Multivitamin] 1 tab PO DAILY 03/06/14 01/01/19 Nitroglycerin Sl Tabs [Nitrostat] 0.4 mg SUBLINGUAL Q5M PRN 03/06/14 01/01/19 [place]-3 Fatty Acids/Fish Oil [Fish 3 cap PO DAILY 03/06/14 01/01/19 Oil 1,000 mg Softgel] Vits A,C,E/Lutein/Minerals 1 tab PO HS 03/06/14 01/01/19 [Ocuvite with Lutein Tablet] lisinopriL [Zestril] 10 mg PO HS 03/06/14 01/01/19 Atorvastatin [Lipitor] 10 mg PO HS 05/21/18 01/01/19 Lactobacillus Acidophilus 1 tab PO DAILY 05/21/18 01/01/19 [Acidophilus] Ubidecarenone [Co Q-10] 100 mg PO DAILY 05/21/18 01/01/19 Levothyroxine Sodium [Synthroid] 75 mcg PO SUTH 12/29/18 01/01/19 Pantoprazole Sodium [Protonix] 20 mg PO DAILY 12/29/18 01/01/19 Allergies Allergy/AdvReac Type Severity Reaction Status Date / Time candesartan cilexetil Allergy Rash/Hives Verified 03/05/20 14:10 [From Atacand] Review of Systems ROS Statement: Those systems with pertinent positive or pertinent negative responses have been documented in the HPI. ROS Other: All systems not noted in ROS Statement are negative. Past Medical History Past Medical History: GERD/Reflux, Hyperlipidemia, Hypertension, Thyroid Disorder History of Any Multi-Drug Resistant Organisms: None Reported Past Surgical History: Cholecystectomy, Heart Catheterization With Stent Additional Past Surgical History / Comment(s): egd,colonoscopy, heart stent Past Anesthesia/Blood Transfusion Reactions: No Reported Reaction, Family History of Problems w/ Anesthesia, Motion Sickness Additional Past Anesthesia/Blood Transfusion Reaction / Comment(s): sister takes a long time coming out of anesthesia Date of Last Stent Placement:: 01-26-2013 Past Psychological History: No Psychological Hx Reported Past Alcohol Use History: Rare Past Drug Use History: None Reported - Past Family History Mother Family Medical History: No Reported History Sister(s) Family Medical History: Cancer Additional Family Medical History / Comment(s): liver and colon CA General Exam - General Exam Comments Initial Comments: General: The patient is awake and alert, in no distress Eye: +3 mm pupils are equal, round,extra-ocular movements are intact. No nystagmus. There is normal conjunctiva bilaterally. No signs of icterus. Respiratory: Normal respiratory rate. Musculoskeletal: Moving all 4 extremities, no obvious deficits. Neurological: A&O x 3. CN II-XII intact grossly, There are no obvious motor or sensory deficits. Coordination appears grossly intact. Speech is normal. Skin: Skin is warm and dry and no rashes or lesions are noted. Psychiatric: Cooperative, appropriate mood & affect, normal judgment. Limitations: no limitations Course Vital Signs 03/05/20 14:08 Temperature 98.7 F Pulse Rate 84 Respiratory 18 Rate Blood Pressure 146/81 O2 Sat by Pulse 98 Oximetry Medical Decision Making - Medical Decision Making She presenting for covert exposure no symptoms PCR pending patient will be notified of results. recommend awaiting results prior to returning to work to prevent spread of disease if she is positive. Disposition Clinical Impression: Exposure to COVID-19 virus Disposition: HOME SELF-CARE Condition: Good Additional Instructions: Please use medication as discussed. Please watch for symptoms and quarantine self for next week. Please return to emergency room if the symptoms increase or worsen or for any other concerns. Is patient prescribed a controlled substance at d/c from ED?: No Referrals: Alfonso Dao MD [Primary Care Provider] - 1-2 days Time of Disposition: 14:26
== END 2020-03-05 14:35 | disposition home or self-care (01) ==
LOC: EC 14:03
DX: U07.1 COVID-19 (principal); K21.9 Gastro-esophageal reflux disease without esophagitis; E78.5 Hyperlipidemia, unspecified; I10 Essential (primary) hypertension; E07.9 Disorder of thyroid, unspecified; Z79.890 Hormone replacement therapy; Z79.899 Other long term (current) drug therapy; Z79.82 Long term (current) use of aspirin; Z95.5 Presence of coronary angioplasty implant and graft; Z90.49 Acquired absence of other specified parts of digestive tract; Z88.8 Allergy status to other drugs, medicaments and biological substances
CPT/HCPCS: 99283; U0003

== ENCOUNTER → 2020-04-05 | Outpatient (CLI) | payer BC ==
--- NOTE | 2020-04-05 11:06 | MM ---
Reason for exam: screening (asymptomatic). Last mammogram was performed 5 months ago. History: Patient is postmenopausal, history of other cancer, and is nulliparous. Took hormonal contraceptives for 22 years beginning at age 16. Physical Findings: A clinical breast exam by your physician is recommended on an annual basis and results should be correlated with mammographic findings. MG 3D Screening Mammo W/Cad Bilateral CC and MLO view(s) were taken. Prior study comparison: October 21, 2019, right breast MG 3d diag mammo w/cad RT. February 19, 2019, right breast MG 3d work up w/cad RT. February 06, 2018, bilateral MG 3d screening mammo w/cad. The breast tissue is heterogeneously dense. This may lower the sensitivity of mammography. There are benign appearing round calcifications bilaterally. There is no discrete abnormality. ASSESSMENT: Benign, BI-RAD 2 RECOMMENDATION: Routine screening mammogram of both breasts in 1 year.
== END | disposition home or self-care (01) ==
LOC: RADMAMWWP 07:02
PROVIDERS: ATTEND Internal Medicine Geriatric Medicine
DX: Z12.31 Encounter for screening mammogram for malignant neoplasm of breast (principal)
CPT/HCPCS: 77063; 77067

== ENCOUNTER → 2020-04-24 | Outpatient (CLI) | payer BC ==
[2020-04-24 15:29] LABS: Basophils # (A) 0.04 X 10*3/uL (0.00-0.10); Basophils % (A) 0.6 %; Eosinophils % (A) 3.1 %; HCT 37.7 % (37.2-46.3); HGB 12.8 g/dL (12.0-15.0); Lymphocytes # (A) 1.52 X 10*3/uL (0.90-5.00); Lymphocytes % (A) 23.5 %; MCH 31.8 pg (27.0-32.0); MCV 93.5 fL (80.0-97.0); Mean Platelet Volume 9.7 fL (9.5-12.2); Monocytes # (A) 0.46 X 10*3/uL (0.20-1.00); Monocytes % (A) 7.1 %; Neutrophils # (A) 4.24 X 10*3/uL (1.80-7.70); Neutrophils % (A) 65.4 %; Platelet Count 216 X 10*3/uL (140-440); RBC 4.03 X 10*6/uL (4.10-5.20); RDW 12.8 % (11.5-14.5); WBC 6.48 X 10*3/uL (4.50-10.00)
[2020-04-24 16:04] LABS: T4, Free (Free Thyroxine) 1.1 ng/dL (0.80-1.80)
[2020-04-24 16:31] LABS: Albumin 4.5 g/dL (3.80-4.90); Albumin/Globulin Ratio 2.14 (1.60-3.17); Anion Gap 8.6 mmol/L (4.00-12.00); BUN/Creat Ratio 16.67 Ratio (12.00-20.00); Carbon Dioxide 27.4 mmol/L (21.6-31.8); Chol/HDL Ratio 3.38; Globulin 2.1 g/dL (1.6-3.3); LDL Cholesterol,Calculated 60.8 mg/dL (0.0-131.0); Potassium 4.4 mmol/L (3.5-5.5); Total Bilirubin 0.8 mg/dL (0.3-1.2); Total Protein 6.6 g/dL (6.2-8.2); VLDL Calculation 32.2 mg/dL (5.00-40.00)
[2020-04-24 17:37] LABS: Hemoglobin A1C 10.7 % (4.0-6.0)
== END | disposition home or self-care (01) ==
LOC: LABWHC1 08:22
PROVIDERS: ATTEND Internal Medicine Geriatric Medicine
DX: E03.9 Hypothyroidism, unspecified (principal); I25.10 Atherosclerotic heart disease of native coronary artery without angina pectoris; R73.9 Hyperglycemia, unspecified
CPT/HCPCS: 36415; 80053; 80061; 83036; 84439; 84443; 85025

== ENCOUNTER → 2020-07-26 | Outpatient (CLI) | payer BC ==
[2020-07-26 14:59] LABS: Basophils # (A) 0.03 X 10*3/uL (0.00-0.10); Basophils % (A) 0.6 %; Eosinophils # (A) 0.33 X 10*3/uL (0.04-0.35); Eosinophils % (A) 6.2 %; HCT 40.9 % (37.2-46.3); HGB 13.3 g/dL (12.0-15.0); Lymphocytes # (A) 1.53 X 10*3/uL (0.90-5.00); Lymphocytes % (A) 28.7 %; MCH 30.2 pg (27.0-32.0); MCHC 32.5 g/dL (32.0-37.0); Mean Platelet Volume 9.1 fL (9.5-12.2); Monocytes # (A) 0.47 X 10*3/uL (0.20-1.00); Monocytes % (A) 8.8 %; Neutrophils # (A) 2.96 X 10*3/uL (1.80-7.70); Neutrophils % (A) 55.3 %; Platelet Count 248 X 10*3/uL (140-440); WBC 5.34 X 10*3/uL (4.50-10.00)
[2020-07-26 19:08] LABS: Hemoglobin A1C 6.5 % (4.0-6.0)
[2020-07-27 02:10] LABS: African American GFR (CKD) 69.9 (60.0-200.0); Albumin 4.6 g/dL (3.80-4.90); Albumin/Globulin Ratio 2.09 (1.60-3.17); Anion Gap 12.4 mmol/L (4.00-12.00); Calcium 10.8 mg/dL (8.7-10.3); Carbon Dioxide 23.6 mmol/L (21.6-31.8); Chol/HDL Ratio 3.05; Globulin 2.2 g/dL (1.6-3.3); LDL Cholesterol,Calculated 62.2 mg/dL (0.0-131.0); Non-African American GFR(CKD) 60.3 (60.0-200.0); Potassium 4.7 mmol/L (3.5-5.5); Total Bilirubin 0.8 mg/dL (0.3-1.2); Total Protein 6.8 g/dL (6.2-8.2); VLDL Calculation 23.8 mg/dL (5.00-40.00)
== END | disposition home or self-care (01) ==
LOC: LABWHC1 07:25
PROVIDERS: ATTEND Internal Medicine Geriatric Medicine
DX: I25.10 Atherosclerotic heart disease of native coronary artery without angina pectoris (principal); E78.2 Mixed hyperlipidemia; E11.65 Type 2 diabetes mellitus with hyperglycemia
CPT/HCPCS: 36415; 80053; 80061; 83036; 84443; 85025

== ENCOUNTER → 2020-08-24 | Outpatient (CLI) | payer BC | END | disposition home or self-care (01) | LOC: LABWHC1 07:25 | PROVIDERS: ATTEND Internal Medicine Geriatric Medicine | DX: E03.9 Hypothyroidism, unspecified (principal) | CPT/HCPCS: 36415; 82310; 83970 ==

== ENCOUNTER → 2020-09-21 | Outpatient (CLI) | payer BC ==
--- NOTE | 2020-09-21 23:28 | SFUN ---
SLEEP CENTER FOLLOW UP NOTE DATE OF SERVICE: 09/21/2020 60-year-old lady has been followed in Sleep Center for treatment of obstructive sleep apnea-hypopnea syndrome. Patient continues to use her CPAP equipment every night for the whole night. [place] Sleepiness Scale today is 8, which is better than during the last visit when it was 10. No problem related to mask fitting, pressure or humidification. I checked CPAP unit. Range of the pressure 5-14, average pressure 12.2, usage 29/30 nights for more than 4 hours, average 6.2 hours per night. Leak is 26 L/minute. Apnea- hypopnea index is 3.1, which is perfect, which is better than during the previous visit where it was 5.0. MEDICATIONS: Metoprolol 25 mg half tablets twice a day. Citalopram 10 mg once a day. Lisinopril 10 mg once a day, pantoprazole 40 mg once a day. 7 mg once a day, zinc vitamins supplement, levothyroxine 50 mcg once a day. PHYSICAL EXAMINATION: GENERAL: Patient in no distress. BP 142/86, HR 60, RR 15, height 5 feet and 2, weight 177, body mass index 32.3, temperature 98.2, oxygen saturation at room air 98%. HEENT: PERRLA, EOMI. Oropharynx low position of soft palate. Mallampati 3. NECK: Supple, no JVD. Thyroid is not palpable. LUNGS: Clear to percussion and to auscultation. Good air exchange. No wheezing or rhonchi. HEART: S1, S2 regular. No murmurs, gallops, or rubs. ABDOMEN: Slightly obese. Soft and nontender. Bowel sounds are present. No organomegaly appreciated. EXTREMITIES: No clubbing or cyanosis. GARMENT MANUFACTURER: Awake, alert, and oriented X3. Cranial nerves 2 to 7 intact. There is no fasciculation or atrophy. noted. No focal deficits observed. IMPRESSION: 1. Obstructive sleep apnea-hypopnea syndrome in severe range. The patient demonstrated good compliance with treatment benefitting from treatment. 2. Periodic limb movements by results of the sleep study. No complaints of leg movements at the present time. 3. Hypertension. 4. Coronary artery disease, status post stent insertion. 5. Hyperlipidemia. 6. Hypothyroidism. 7. Status post cholecystectomy. 8. Status post ganglion cyst removed. PLAN: 1. Patient will continue to use PAP equipment every night for the whole night. 2. Sleep hygiene with regular time in bed for at least 7-1/2 to 8 hours. 3. Precautions related to driving. No driving if feeling sleepiness. 4. I will maintain all necessary prescription for PAP supplies including mask, tube, filters. 5. Watching weight. 6. Follow-up visit in 6 months or earlier if patient has any problems. I spent with the patient and documentation more than 30 minutes. Thank you very much for allowing me to participate in management of your patient. Sincerely, Fausto Hatch MD, PhD, FAASM Diplomat of [place] [employer] Medical Specialties [place] Board of Internal Medicine Supervisor [employer]itting of [facility] [place] MMODL / OFELIAN: [id number] /
== END ==
LOC: SLEEP 16:29
PROVIDERS: ATTEND Internal Medicine
DX: G47.33 Obstructive sleep apnea (adult) (pediatric) (principal); G47.61 Periodic limb movement disorder; I10 Essential (primary) hypertension; I25.10 Atherosclerotic heart disease of native coronary artery without angina pectoris; E78.5 Hyperlipidemia, unspecified; E03.9 Hypothyroidism, unspecified; Z95.1 Presence of aortocoronary bypass graft; Z90.49 Acquired absence of other specified parts of digestive tract; Z98.890 Other specified postprocedural states; Z79.890 Hormone replacement therapy; Z79.899 Other long term (current) drug therapy; Z88.8 Allergy status to other drugs, medicaments and biological substances

== ENCOUNTER → 2020-12-19 | Outpatient (CLI) | payer BC ==
[2020-12-19 11:28] LABS: HCT 38.3 % (37.2-46.3); HGB 13.1 g/dL (12.0-15.0); MCH 31.6 pg (27.0-32.0); MCHC 34.2 g/dL (32.0-37.0); MCV 92.3 fL (80.0-97.0); Mean Platelet Volume 9.2 fL (9.5-12.2); Platelet Count 255 X 10*3/uL (140-440); RBC 4.15 X 10*6/uL (4.10-5.20); RDW 12.2 % (11.5-14.5); WBC 6.18 X 10*3/uL (4.50-10.00)
[2020-12-19 11:55] LABS: Basophils # (A) 0.04 X 10*3/uL (0.00-0.10); Basophils % (A) 0.6 %; Eosinophils # (A) 0.42 X 10*3/uL (0.04-0.35); Eosinophils % (A) 6.8 %; Lymphocytes # (A) 1.95 X 10*3/uL (0.90-5.00); Lymphocytes % (A) 31.6 %; Monocytes # (A) 0.42 X 10*3/uL (0.20-1.00); Monocytes % (A) 6.8 %; Neutrophils # (A) 3.32 X 10*3/uL (1.80-7.70); Neutrophils % (A) 53.7 %
[2020-12-19 12:33] LABS: Hemoglobin A1C 5.4 % (4.0-6.0)
== END | disposition home or self-care (01) ==
LOC: LABWHC1 07:03
PROVIDERS: ATTEND Internal Medicine Geriatric Medicine
DX: I25.10 Atherosclerotic heart disease of native coronary artery without angina pectoris (principal); E11.65 Type 2 diabetes mellitus with hyperglycemia; E03.9 Hypothyroidism, unspecified
CPT/HCPCS: 36415; 80053; 80061; 83036; 84439; 84443; 85025

== ENCOUNTER → 2021-03-29 | Outpatient (CLI) | payer BC ==
--- NOTE | 2021-03-30 09:52 | SFUN ---
SLEEP CENTER FOLLOW UP NOTE DATE OF SERVICE: 03/29/2021 60-year-old lady has been followed in Sleep Center for treatment of obstructive sleep apnea-hypopnea syndrome. Patient continued to use her CPAP equipment every night for the whole night getting her CPAP supplies in time. She is using her nasal pillow mask, but sometimes in the middle of the night she told that she feels discomfort in her nose with this type of nasal pillow mask. [place] Sleepiness Scale today is 6. I checked her CPAP unit, pressure is 5-14 cm of water. Average at 11.3 cm of water, usage / nights. Average 4.6 hours per night. Leak is 19 L/minute which is borderline. Apnea-hypopnea index is 2.0, which is normal range. MEDICATIONS: Metoprolol 25 mg half tablet once a day, citalopram 5 mg once a day, lisinopril 10 mg once a day, pantoprazole 40 mg once a day, levothyroxine 52 mcg #1-1/2 tablet Friday and , alprazolam 0.2 mg as necessary. Vitamins, lutein, magnesium, probiotic, Pepcid. PHYSICAL EXAMINATION: GENERAL: Patient in no distress. BP 132/76, HR 72, RR 14, height 5 feet 2 inches, weight 160.6, body mass index 30.2, temperature 97.0, oxygen saturation at room air 99%. Oropharynx: Low position of soft palate, Mallampati 3. NECK: Supple, no JVD. Thyroid is not palpable. LUNGS: Clear to percussion and to auscultation. Good air exchange. No wheezing or rhonchi. HEART: S1, S2 regular. No murmurs, gallops, or rubs. ABDOMEN: Soft and nontender. Bowel sounds are present. No organomegaly appreciated. EXTREMITIES: No clubbing or cyanosis. OFF PREMISE SERVICE REPRESENTATIVE: Awake, alert, and oriented X3. Cranial nerves 2 to 7 intact. There is no fasciculation or atrophy. noted. No focal deficits observed. IMPRESSION: 1. Obstructive sleep apnea-hypopnea syndrome. Patient demonstrated borderline compliance with treatment, benefitting from treatment. She has some discomfort with nasal pillow mask. 2. History of periodic limb movements during the sleep study. No complaints of leg movements during the night at the present time. 3. Coronary artery disease, status post stent insertion. 4. Hypertension. 5. Hypothyroidism. 6. Hyperlipidemia. 7. Status post cholecystectomy. 8. Status post ganglion cyst removed. PLAN: 1. Prescription for different type of nasal pillow mask, Hanson FX small size. 2. Patient will continue to use PAP equipment every night for the whole night. 3. Sleep hygiene with regular time in bed for at least 7-1/2 to 8 hours. 4. Precautions related to driving. No driving if feeling sleepiness. 5. I will maintain all necessary prescription for PAP supplies including mask, tube, filters. 6. Watching weight. 7. Follow-up visit in 6 months or earlier if patient has any problems. Thank you very much for allowing me to participate in the management of your patient. Sincerely, Fausto Hatch MD, PhD, FAASM Diplomat of [place] [employer] Specialties Sleep Medicine Board of [place] Board of Internal Medicine Outside Solar Sales Consultant of [facility] [place] JEYSON / RADHA: [id number] /
== END ==
LOC: SLEEP 16:47
PROVIDERS: ATTEND Internal Medicine
DX: G47.33 Obstructive sleep apnea (adult) (pediatric) (principal); I25.10 Atherosclerotic heart disease of native coronary artery without angina pectoris; I10 Essential (primary) hypertension; E03.9 Hypothyroidism, unspecified; E78.5 Hyperlipidemia, unspecified; Z90.49 Acquired absence of other specified parts of digestive tract; Z95.5 Presence of coronary angioplasty implant and graft; Z98.890 Other specified postprocedural states; Z79.890 Hormone replacement therapy; Z79.899 Other long term (current) drug therapy; Z88.8 Allergy status to other drugs, medicaments and biological substances

== ENCOUNTER → 2021-04-09 | Outpatient (CLI) | payer BC ==
[2021-04-09 08:01] LABS: Basophils % (A) 1 %; Eosinophils # (A) 0.4 k/uL (0-0.7); Eosinophils % (A) 7 %; HCT 41.1 % (34.0-46.0); HGB 13.4 gm/dL (11.4-16.0); Lymphocytes # (A) 1.5 k/uL (1.0-4.8); Lymphocytes % (A) 27 %; MCH 31.2 pg (25.0-35.0); MCHC 32.7 g/dL (31.0-37.0); MCV 95.4 fL (80.0-100.0); Mean Platelet Volume 7.2; Monocytes # (A) 0.3 k/uL (0-1.0); Monocytes % (A) 6 %; Neutrophils # (A) 3.2 k/uL (1.3-7.7); Neutrophils % (A) 58 %; Platelet Count 230 k/uL (150-450); RDW 12.4 % (11.5-15.5); WBC 5.5 k/uL (3.8-10.6)
[2021-04-09 08:11] LABS: ALT 34 U/L (4-34); AST 34 U/L (14-36); African American GFR (CKD) 75 (>60 ml/min/1.73 sqM); Albumin 4.1 g/dL (3.5-5.0); Albumin/Globulin Ratio 1.5; Alkaline Phosphatase 156 U/L (38-126); Anion Gap 3 mmol/L; Blood Urea Nitrogen 16 mg/dL (7-17); Calcium 10.1 mg/dL (8.4-10.2); Carbon Dioxide 27 mmol/L (22-30); Chloride 106 mmol/L (98-107); Globulin 2.8 g/dL; Glucose 100 mg/dL (74-99); Non-African American GFR(CKD) 65 (>60 ml/min/1.73 sqM); Potassium 4.7 mmol/L (3.5-5.1); Sodium 136 mmol/L (137-145); Total Bilirubin 0.6 mg/dL (0.2-1.3); Total Protein 6.9 g/dL (6.3-8.2)
[2021-04-09 11:18] LABS: Chol/HDL Ratio 2.49 Ratio; LDL Cholesterol,Calculated 58.1 mg/dL (0.0-131.0)
--- NOTE | 2021-04-09 13:32 | MM ---
Reason for exam: screening (asymptomatic). Last mammogram was performed 1 year ago. History: Patient is postmenopausal, history of other cancer, and is nulliparous. Took hormonal contraceptives for 22 years beginning at age 16. Physical Findings: A clinical breast exam by your physician is recommended on an annual basis and results should be correlated with mammographic findings. MG 3D Screening Mammo W/Cad Bilateral CC and MLO view(s) were taken. Prior study comparison: April 05, 2020, bilateral MG 3d screening mammo w/cad. October 21, 2019, right breast MG 3d diag mammo w/cad RT. The breast tissue is heterogeneously dense. This may lower the sensitivity of mammography. There are benign appearing round calcifications bilaterally. There is no discrete abnormality. ASSESSMENT: Benign, BI-RAD 2 RECOMMENDATION: Routine screening mammogram of both breasts in 1 year.
--- NOTE | 2021-04-09 15:22 | BD ---
EXAMINATION TYPE: Axial Bone Density DATE OF EXAM: 04/09/2021 COMPARISON: 02.03.2015 CLINICAL HISTORY: 60 YR OLD FEMALE, ICD-10 CODE: N95.1 MENOPAUSAL Height: 60.5 Weight: 158 FRAX RISK QUESTIONS: NOTHING TO NOTE HERE RISK FACTORS HISTORY OF: Family History of Osteoporosis: YES, MOTHER AND SISTERS NO HIP FX Diet low in dairy products/other sources of calcium: YES Postmenopausal woman: YES AT AGE 50 Hyperparathyroidism: YES, HYPER Adrenal Insufficiency: NO MEDICATIONS: Thyroid Medications: YES, SYNTHROID PRODUCT FOR ABOUT 8 YRS Additional Medications: BP MEDS, CITALOPRAM, XANAX PRN, PROTONIX, STATIN FOR CHOLESTEROL, RYBELSIS FO R DIABETES, VIT D Additional History: HYPERTENSION, ANXIETY, REFLUX, CHOLESTEROL, DIABETES, EXAM MEASUREMENTS: Bone mineral densitometry was performed using the [employer] System. Bone mineral density as measured about the Lumbar spine is: ----- L1-L4(G/cm2): 1.246 T Score Values are as follows: ----- L1: 0.3 ----- L2: 0.1 ----- L3: 1.2 ----- L4: 0.5 ----- L1-L4: 0.6 Bone mineral density has: Decreased -1.6% since study of: 02.03.2015 Bone mineral density about the R hip (g/cm2): 1.092 Bone mineral density about the L hip (g/cm2): 1.085 T Score values are as follows: -----R Neck: -0.7 -----L Neck: -0.7 -----R Total: 0.7 -----L Total: 0.6 Bone mineral density has: Decreased -6.6% since study of: 02.03.2015 FRAX%s: THERE IS A 6.7% CHANCE FOR A MAJOR OSTEOPOROTIC FX AND A 0.3% FOR HIP.....PROBABILITY FOR FX IN 10 YRS TIME IMPRESSION: Normal (Values between +1 and -1 indicate normal bone mass). Consider repeating this study in 5 year s or sooner if there is some new clinical indication. NOTE: T-SCORE=SD OF THE YOUNG ADULT MEAN.
== END ==
LOC: RADMAMWWP 07:01
PROVIDERS: ATTEND Obstetrics & Gynecology
DX: Z12.31 Encounter for screening mammogram for malignant neoplasm of breast (principal); Z78.0 Asymptomatic menopausal state; I25.10 Atherosclerotic heart disease of native coronary artery without angina pectoris; E11.65 Type 2 diabetes mellitus with hyperglycemia
CPT/HCPCS: 36415; 77063; 77067; 77080; 80053; 80061; 83036; 83970; 84443; 85025

== ENCOUNTER → 2021-09-27 | Outpatient (CLI) | payer BC ==
--- NOTE | 2021-09-27 17:05 | P.PN ---
Subjective DATE: 09/27/2021 FOLLOW UP VISIT. Patient with obstructive sleep apnea hypopnea syndrome return to sleep center for follow-up visit. Information from previous visit have been reviewed. Patient is using PAP equipment every night for the whole night, getting PAP supplies in time. The patient does not have significant problems with the mask, PAP unit and humidification. Butler sleepiness scale is for. I checked information from PAP unit. PAP unit pressure 514, average 12 cm H2O. Usage is 95 % for more then 4 hours, average 5.7 hours per night. Leak is 19 l/m, which is in acceptable range. Apnea Hypopnea Index is 2.4, which is normal. MEDICATIONS:1. Aspirin 81 mg once a day 2. Atorvastatin 20 mg once a day 3. Citalopram 10 mg once a day 4. Levothyroxine 50 g once a day 5. Lisinopril 10 mg once a day 6. Metoprolol 25 mg half tablet twice a day 7. Pantoprazole 40 mg once a day 8. Pepcid During physical exam: GENERAL: A pleasant patient without any distress. VITAL SIGNS: BP 120/72, HR 67, RR 16 , weight 162.8, height 5 foot 1-1/4 inches, which he mustn't index 30.5, temperature 97.5, oxygen saturation at room air 97 % . HEENT: PERRLA, EOMI.low position of soft palate, Mallapati 3 . NECK: Supple. No JVD. LUNGS: Clear to percussion and to auscultation. Good air exchange. No wheezing or rhonchi. HEART: S1, S2 regular. ABDOMEN: Soft and nontender. Slightly obese EXTREMITIES: No clubbing or cyanosis. PARAPLANNER: Awake, alert, and oriented x3. No focal deficit. Impressions: 1. Obstructive sleep apnea-hypopnea syndrome. Patient demonstrated great compliance with treatment, benefiting from treatment. 2. Coronary artery disease status post stent insertion. 3. History of periodic limb movements by results of sleep study. No clinical symptoms at the present time. 4. Hypertension. 5. Hypothyroidism. 6. Hyperlipidemia. 7. Status post cholecystectomy. 8. Status post ganglion cyst removed. Plan: 1. Continue using PAP equipment every night for the whole night. 2. To change air filter at least 1-2 times per month. 3. PAP unit should stay lower then position of the head. 4. Advised patient to remove all remaining water from humidifier canister daily and make it dry after each usage. Refill canister with fresh distilled water before each usage. 5. Sleep hygiene with regular time in bed for at least 8 hours. 6. Precautions related to driving. No driving if feel any sleepiness. 7. I will maintain prescription for PAP supplies including mask, tube, filters. 8. Follow up visit in 6 months or earlier if patient has any problems. 9. Watching weight. Thank you very much for allowing me to participate in the management of your patient. Fausto Hatch MD, PhD, FAASM. Diplomat of [place] [employer], Sleep Medicine Board by [place] Financial Services Consultant of [facility] [place]
== END ==
LOC: SLEEP 16:32
PROVIDERS: ATTEND Internal Medicine
DX: G47.33 Obstructive sleep apnea (adult) (pediatric) (principal); I25.10 Atherosclerotic heart disease of native coronary artery without angina pectoris; Z95.5 Presence of coronary angioplasty implant and graft; I10 Essential (primary) hypertension; G47.61 Periodic limb movement disorder; E03.9 Hypothyroidism, unspecified; E78.5 Hyperlipidemia, unspecified; Z90.49 Acquired absence of other specified parts of digestive tract; Z98.890 Other specified postprocedural states; Z99.89 Dependence on other enabling machines and devices; Z79.890 Hormone replacement therapy; Z79.82 Long term (current) use of aspirin; Z88.8 Allergy status to other drugs, medicaments and biological substances
CPT/HCPCS: 99212

== ENCOUNTER → 2021-11-16 | Outpatient (CLI) | payer BC ==
[2021-11-16 11:16] LABS: ALT 34 U/L (8-44); AST 34 U/L (13-35); African American GFR (CKD) 69.4 (60.0-200.0); Albumin 4.5 g/dL (3.8-4.9); Albumin/Globulin Ratio 1.73 (1.60-3.17); Alkaline Phosphatase 124 U/L (41-126); Blood Urea Nitrogen 14.6 mg/dL (9.0-27.0); Calcium 10.5 mg/dL (8.7-10.3); Carbon Dioxide 27.3 mmol/L (20.0-27.5); Chloride 103 mmol/L (96-109); Chol/HDL Ratio 2.68 Ratio; Globulin 2.6 g/dL (1.6-3.3); Glucose 103 mg/dL (70-110); LDL Cholesterol,Calculated 55.2 mg/dL (0.0-131.0); Non-African American GFR(CKD) 59.9 (60.0-200.0); Potassium 4.6 mmol/L (3.5-5.5); Sodium 139 mmol/L (135-145); Total Protein 7.1 g/dL (6.2-8.2)
[2021-11-16 11:32] LABS: Basophils # (A) 0.06 X 10*3/uL (0.00-0.10); Basophils % (A) 0.9 %; Eosinophils % (A) 7.7 %; HCT 40.8 % (37.2-46.3); HGB 13.8 g/dL (12.0-15.0); Immature Grans, Automated 0.3 %; Lymphocytes # (A) 1.94 X 10*3/uL (0.90-5.00); Lymphocytes % (A) 29.8 %; MCH 30.7 pg (27.0-32.0); MCHC 33.8 g/dL (32.0-37.0); MCV 90.7 fL (80.0-97.0); Mean Platelet Volume 8.8 fL (9.5-12.2); Monocytes # (A) 0.47 X 10*3/uL (0.20-1.00); Monocytes % (A) 7.2 %; NRBC Per 100 WBC 0 /100 WBCS (0.0-0.0); Neutrophils # (A) 3.52 X 10*3/uL (1.80-7.70); Neutrophils % (A) 54.1 %; Platelet Count 216 X 10*3/uL (140-440); RDW 12.1 % (11.5-14.5); WBC 6.51 X 10*3/uL (4.50-10.00)
[2021-11-16 20:06] LABS: Microalbumin Creatinine Ratio <30 mg/g Creat (0-30); Urine Creatinine 76.7 mg/dL (28.0-217.0)
== END | disposition home or self-care (01) ==
LOC: LABWHC1 08:03
PROVIDERS: ATTEND Internal Medicine Geriatric Medicine
DX: I25.10 Atherosclerotic heart disease of native coronary artery without angina pectoris (principal); E11.65 Type 2 diabetes mellitus with hyperglycemia
CPT/HCPCS: 36415; 80053; 80061; 82043; 82570; 83036; 84443; 85025

== ENCOUNTER → 2022-04-10 | Outpatient (CLI) | payer BC ==
--- NOTE | 2022-04-11 08:26 | MM ---
Reason for Exam: Screening (asymptomatic). Last screening mammogram was performed 12 month(s) ago. Patient History: Menarche at age 8. Patient has no children. Postmenopausal. Hormonal Contraceptives for 22 years from age 16 until age 38. Risk Values: Mine 5 year model risk: 1.9%. NCI Lifetime model risk: 8.1%. Prior Study Comparison: 10/21/2019 Right Diagnostic Mammogram, [facility]. 04/05/2020 Bilateral Screening Mammogram, [facility]. 04/09/2021 Bilateral Screening Mammogram, [facility]. Tissue Density: The breast tissue is heterogeneously dense. This may lower the sensitivity of mammography. Findings: Analyzed By CAD. There is no suspicious group of microcalcifications or new suspicious mass in either breast. Overall Assessment: Negative, BI-RAD 1 Management: Screening Mammogram of both breasts in 1 year. A clinical breast exam by your physician is recommended on an annual basis and results should be correlated with mammographic findings. [facility] will attempt to contact patient to return for supplemental views and ultrasound if indicated. Electronically signed and approved by: Lamberto Snow DO
== END | disposition home or self-care (01) ==
LOC: RADMAMWWP 07:14
PROVIDERS: ATTEND Obstetrics & Gynecology
DX: Z12.31 Encounter for screening mammogram for malignant neoplasm of breast (principal); Z78.0 Asymptomatic menopausal state
CPT/HCPCS: 77063; 77067

== ENCOUNTER → 2022-04-11 | Outpatient (CLI) | payer BC ==
--- NOTE | 2022-04-11 16:35 | P.PN ---
Subjective DATE: 04/11/2022 FOLLOW UP VISIT. Patient with obstructive sleep apnea hypopnea syndrome return to sleep center for follow-up visit. Information from previous visit have been reviewed. Patient is using PAP equipment every night for the whole night, getting PAP supplies in time. The patient does not have significant problems with the mask, PAP unit and humidification. [place] sleepiness scale is 5, which is normal. I checked information from PAP unit. PAP unit pressure 5-14, average 11 cm H2O. Usage is 100 % for more then 4 hours, average 5.1 hours per night. Leak is 13 l/m, which is in acceptable range. Apnea Hypopnea Index is 2.2, which is normal. MEDICATIONS:1. Levothyroxine 50 g 2. Citalopram 10 mg once a day 3. Metoprolol 25 mg once a day 4. Pantoprazole 40 mg once a day 5. Atorvastatin 20 mg once a day 6. Lisinopril 10 mg once a day 7. Alprazolam 0.25 mg as needed 8. Rybelsis 7 mg once a day During physical exam: GENERAL: A pleasant patient without any distress. VITAL SIGNS: BP 132/83, HR 66, RR 16 , weight 169, temperature 98.2, oxygen saturation at room air 100 % . HEENT: PERRLA, EOMI.low position of soft palate, Mallapati 3 . NECK: Supple. No JVD. LUNGS: Clear to percussion and to auscultation. Good air exchange. No wheezing or rhonchi. HEART: S1, S2 regular. ABDOMEN: Soft and nontender. Slightly obese EXTREMITIES: No clubbing or cyanosis. SHANK SKINNER: Awake, alert, and oriented x3. No focal deficit. Impressions: 1. Obstructive sleep apnea-hypopnea syndrome. Patient demonstrated great compliance with treatment, benefiting from treatment. 2. Hypertension. 3. Coronary artery disease status post stent insertion. 4. Hypothyroidism. 5. Hyperlipidemia. 6. Status post cholecystectomy. 7. Status post ganglion cyst removed. Plan: 1. Continue using PAP equipment every night for the whole night. 2. To change air filter at least 1-2 times per month. 3. PAP unit should stay lower then position of the head. 4. Advised patient to remove all remaining water from humidifier canister daily and make it dry after each usage. Refill canister with fresh distilled water before each usage. 5. Sleep hygiene with regular time in bed for at least 8 hours. 6. Precautions related to driving. No driving if feel any sleepiness. 7. I will maintain prescription for PAP supplies including mask, tube, filters. 8. Watching and losing weight. 9. Follow up visit in 6 months or earlier if patient has any problems. Thank you very much for allowing me to participate in the management of your patient. Fausto Hatch MD, PhD, FAASM. Diplomat of [place] [employer], Sleep Medicine Board by [place] [employer] Mock Up Assembler of [facility] [place]
== END ==
LOC: SLEEP 16:15
PROVIDERS: ATTEND Internal Medicine
DX: G47.33 Obstructive sleep apnea (adult) (pediatric) (principal); I10 Essential (primary) hypertension; I25.10 Atherosclerotic heart disease of native coronary artery without angina pectoris; E03.9 Hypothyroidism, unspecified; E78.5 Hyperlipidemia, unspecified; Z90.49 Acquired absence of other specified parts of digestive tract; Z79.899 Other long term (current) drug therapy; Z98.890 Other specified postprocedural states; Z79.890 Hormone replacement therapy; Z88.8 Allergy status to other drugs, medicaments and biological substances
CPT/HCPCS: 99212

== ENCOUNTER → 2022-06-10 | Outpatient (CLI) | payer BC ==
[2022-06-10 14:46] LABS: Basophils # (A) 0.05 X 10*3/uL (0.00-0.10); Basophils % (A) 0.8 %; Eosinophils # (A) 0.27 X 10*3/uL (0.04-0.35); Eosinophils % (A) 4.1 %; HCT 39.7 % (37.2-46.3); HGB 13.3 g/dL (12.0-15.0); Immature Grans, Automated 0.3 %; Lymphocytes # (A) 1.77 X 10*3/uL (0.90-5.00); Lymphocytes % (A) 26.7 %; MCH 31.1 pg (27.0-32.0); MCHC 33.5 g/dL (32.0-37.0); MCV 92.8 fL (80.0-97.0); Mean Platelet Volume 9.1 fL (9.5-12.2); Monocytes # (A) 0.55 X 10*3/uL (0.20-1.00); Monocytes % (A) 8.3 %; NRBC Per 100 WBC 0 /100 WBCS (0.0-0.0); Neutrophils # (A) 3.97 X 10*3/uL (1.80-7.70); Neutrophils % (A) 59.8 %; Platelet Count 251 X 10*3/uL (140-440); RBC 4.28 X 10*6/uL (4.10-5.20); RDW 11.9 % (11.5-14.5); WBC 6.63 X 10*3/uL (4.50-10.00)
[2022-06-10 15:04] LABS: ALT 33 U/L (8-44); AST 32 U/L (13-35); Albumin 4.4 g/dL (3.8-4.9); Albumin/Globulin Ratio 1.91 (1.60-3.17); Alkaline Phosphatase 156 U/L (41-126); BUN/Creat Ratio 12.48 Ratio (12.00-20.00); Blood Urea Nitrogen 13.1 mg/dL (9.0-27.0); Calcium 10.3 mg/dL (8.7-10.3); Carbon Dioxide 29.4 mmol/L (20.0-27.5); Chloride 102 mmol/L (96-109); Chol/HDL Ratio 2.72 Ratio; Creatine Kinase 169 U/L (26-186); Globulin 2.3 g/dL (1.6-3.3); Glucose 105 mg/dL (70-110); LDL Cholesterol,Calculated 59.2 mg/dL (0.0-131.0); Non-African American GFR(CKD) 56.1 (60.0-200.0); Potassium 4.9 mmol/L (3.5-5.5); Sodium 139 mmol/L (135-145); Total Protein 6.8 g/dL (6.2-8.2)
== END | disposition home or self-care (01) ==
LOC: LABWHC1 07:06
PROVIDERS: ATTEND Internal Medicine Geriatric Medicine
DX: I25.118 Atherosclerotic heart disease of native coronary artery with other forms of angina pectoris (principal); E78.2 Mixed hyperlipidemia; E11.65 Type 2 diabetes mellitus with hyperglycemia
CPT/HCPCS: 36415; 80053; 80061; 82550; 83036; 84443; 85025

== ENCOUNTER → 2022-10-31 | Outpatient (CLI) | payer BC ==
--- NOTE | 2022-10-31 16:52 | P.PN ---
Subjective DATE: 10/31/2022 FOLLOW UP VISIT. Patient with obstructive sleep apnea hypopnea syndrome return to sleep center for follow-up visit. Information from previous visit have been reviewed. Patient is using PAP equipment every night for the whole night, getting PAP supplies in time. The patient does not have significant problems with the mask, PAP unit and humidification. [place] sleepiness scale is 4. I checked information from PAP unit. PAP unit pressure 5-14, average 12.4 cm H2O. Usage is 100% and 77 % for more then 4 hours, average 5 hours per night. Leak is 12.4 l/m, which is in acceptable range. Apnea Hypopnea Index is 4.8, which is normal. MEDICATIONS:1. Lisinopril 10 mg once a day 2. Atorvastatin 20 mg once a day 3. Pantoprazole 40 mg once a day 4. Levothyroxine 50 g once a day 5. Metoprolol 25 mg once a day 6. Citalopram 10 mg once a day During physical exam: GENERAL: A pleasant patient without any distress. VITAL SIGNS: BP 130/73, HR 84, RR 16, weight 173.4, temperature 98.3, oxygen saturation at room air 98 % . HEENT: PERRLA, EOMI.low position of soft palate, Mallapati 3 . NECK: Supple. No JVD. LUNGS: Clear to percussion and to auscultation. Good air exchange. No wheezing or rhonchi. HEART: S1, S2 regular. ABDOMEN: Soft and nontender. Slightly obese EXTREMITIES: No clubbing or cyanosis. ELECTROTYPER HELPER: Awake, alert, and oriented x3. No focal deficit. I changed her regimen of CPAP unit to the range of 5-15 cm of water. Impressions: 1. Obstructive sleep apnea-hypopnea syndrome. Patient demonstrated great compliance with treatment, benefiting from treatment. 2. Hypertension. 3. Coronary artery disease status post stent insertion. 4. Hypothyroidism. 5. Hyperlipidemia. 6. Status post cholecystectomy. Plan: 1. Continue using PAP equipment every night for the whole night. 2. To change air filter at least 1-2 times per month. 3. PAP unit should stay lower then position of the head. 4. Advised patient to remove all remaining water from humidifier canister daily and make it dry after each usage. Refill canister with fresh distilled water before each usage. 5. Sleep hygiene with regular time in bed for at least 8 hours. 6. Precautions related to driving. No driving if feel any sleepiness. 7. I will maintain prescription for PAP supplies including mask, tube, filters. 8. Follow up visit in 6 months or earlier if patient has any problems. 9. Watching weight. Thank you very much for allowing me to participate in the management of your patient. Fausto Hatch MD, PhD, FAASM. Diplomat of [place] [employer], Sleep Medicine Board by [place] [employer] Upholstery Instructor of [facility] [place]
== END ==
LOC: 3 N SLEEP 16:16
PROVIDERS: ATTEND Internal Medicine
DX: G47.33 Obstructive sleep apnea (adult) (pediatric) (principal); I10 Essential (primary) hypertension; E78.5 Hyperlipidemia, unspecified; E03.9 Hypothyroidism, unspecified; I25.10 Atherosclerotic heart disease of native coronary artery without angina pectoris; Z90.49 Acquired absence of other specified parts of digestive tract; Z95.5 Presence of coronary angioplasty implant and graft; Z79.899 Other long term (current) drug therapy; Z79.890 Hormone replacement therapy; Z88.8 Allergy status to other drugs, medicaments and biological substances
CPT/HCPCS: 99212

== ENCOUNTER → 2023-04-22 | Outpatient (CLI) | payer BC ==
--- NOTE | 2023-04-22 13:07 | MM ---
Reason for Exam: Screening (asymptomatic). Last screening mammogram was performed 12 month(s) ago. Patient History: Menarche at age 8. Patient has no children. Postmenopausal. Hormonal Contraceptives for 22 years from age 16 until age 38. Risk Values: Mine 5 year model risk: 2.0%. NCI Lifetime model risk: 7.9%. Prior Study Comparison: 04/05/2020 Bilateral Screening Mammogram, [facility]. 04/09/2021 Bilateral Screening Mammogram, [facility]. 04/10/2022 Bilateral MG 3D screening mammo w/cad, [facility]. Tissue Density: The breast tissue is heterogeneously dense. This may lower the sensitivity of mammography. Findings: Analyzed By CAD. There is no suspicious group of microcalcifications or new suspicious mass in either breast. Overall Assessment: Benign, BI-RAD 2 Management: Screening Mammogram of both breasts in 1 year. . Patient should continue monthly self-breast exams. A clinical breast exam by your physician is recommended on an annual basis. This exam should not preclude additional follow-up of suspicious palpable abnormalities. Note on Mine scores and lifetime risk: 1. A Mine score greater than 3% is considered moderate risk. If this is the case, consider specialist referral to assess eligibility for a risk reducing agent. 2. If overall lifetime risk for the development of breast cancer is 20% or higher, the patient may qualify for future screening with alternating mammogram and breast MRI. Electronically signed and approved by: Bakari Freed M.D. Radiologis
== END | disposition home or self-care (01) ==
LOC: RADMAMWWP 07:15
PROVIDERS: ATTEND Internal Medicine Geriatric Medicine
DX: Z12.31 Encounter for screening mammogram for malignant neoplasm of breast (principal); Z78.0 Asymptomatic menopausal state
CPT/HCPCS: 77063; 77067

== ENCOUNTER → 2023-07-17 | Outpatient (CLI) | payer MEDICARE ==
[2023-07-17 15:30] VITALS: BP 145/72; PULSE 69; RESP 16; TEMP 97.7
--- NOTE | 2023-07-17 16:05 | P.PN ---
Subjective DATE: 07/17/2023 FOLLOW UP VISIT. Patient with obstructive sleep apnea hypopnea syndrome return to sleep center for follow-up visit. Information from previous visit have been reviewed. Patient is using PAP equipment every night for the whole night, getting PAP supplies in time. The patient does not have significant problems with the mask, PAP unit and humidification. Comfort sleepiness scale is 3, which is perfect. I checked information from PAP unit. PAP unit pressure 5-15, average 12.6 cm H2O. Usage is 100% for more then 4 hours, average 6.9 hours per night. Leak is 13 l/m, which is in acceptable range. Apnea Hypopnea Index is borderline 5.6. MEDICATIONS:1. Levothyroxine 50 mcg once a day 2. Metoprolol 25 mg half a tablet twice a day 3. Atorvastatin 20 mg once a day 4. Lisinopril 10 mg once a day 5. Pantoprazole 40 mg once a day 6. Aspirin 81 mg once a day 7. Rybelsus 7 mg once a day During physical exam: GENERAL: A pleasant patient without any distress. VITAL SIGNS: Please see below, weight 172.2 pounds. HEENT: PERRLA, EOMI.low position of soft palate, Mallapati 3 . NECK: Supple. No JVD. LUNGS: Clear to percussion and to auscultation. Good air exchange. No wheezing or rhonchi. HEART: S1, S2 regular. ABDOMEN: Soft and nontender.[] EXTREMITIES: No clubbing or cyanosis. RECYCLING COORDINATOR: Awake, alert, and oriented x3. No focal deficit. Impressions: 1. Obstructive sleep apnea-hypopnea syndrome. Patient demonstrated great compliance with treatment, benefiting from treatment. 2. Hypertension. 3. Coronary artery disease, status post stent insertion. 4. Hypothyroidism. 5. Hyperlipidemia. 6. Status post cholecystectomy. 7. Mild obesity, BMI 33.3, weight is about the same as during previous visit. I increased range of the pressure to the level 5-16 cm of water. Plan: 1. Continue using PAP equipment every night for the whole night. 2. To change air filter at least 1-2 times per month. 3. PAP unit should stay lower then position of the head. 4. Advised patient to remove all remaining water from humidifier canister daily and make it dry after each usage. Refill canister with fresh distilled water before each usage. 5. Sleep hygiene with regular time in bed for at least 8 hours. 6. Precautions related to driving. No driving if feel any sleepiness. 7. I will maintain prescription for PAP supplies including mask, tube, filters. 8. Follow up visit in 6 months or earlier if patient has any problems. 9. Watching weight. Thank you very much for allowing me to participate in the management of your patient. Fausto Hatch MD, PhD, FAASM. Diplomat of [place] Board of Sleep Medicine, Sleep Medicine Board by [place] Board of Internal Medicine Mash Grinder of [facility] [place] Objective - Vital Signs Vital signs: Vital Signs Temp 97.7 F 07/17/23 15:30 Pulse 69 07/17/23 15:30 Resp 16 07/17/23 15:30 BP 145/72 07/17/23 15:30 Pulse Ox 99 07/17/23 15:30 FiO2 Intake & Output 07/16/23 07/17/23 07/17/23 18:59 06:59 18:59 Weight 78.018 kg
== END ==
LOC: 3 N SLEEP 15:15
PROVIDERS: ATTEND Internal Medicine
DX: G47.33 Obstructive sleep apnea (adult) (pediatric) (principal); I10 Essential (primary) hypertension; I25.10 Atherosclerotic heart disease of native coronary artery without angina pectoris; E03.9 Hypothyroidism, unspecified; E78.5 Hyperlipidemia, unspecified; E66.9 Obesity, unspecified; Z68.33 Body mass index [BMI] 33.0-33.9, adult; Z79.890 Hormone replacement therapy; Z79.899 Other long term (current) drug therapy; Z90.49 Acquired absence of other specified parts of digestive tract; Z95.5 Presence of coronary angioplasty implant and graft; Z99.89 Dependence on other enabling machines and devices; Z88.8 Allergy status to other drugs, medicaments and biological substances
CPT/HCPCS: 99212

== ENCOUNTER → 2024-03-04 | Outpatient (CLI) | payer MEDICARE ==
[2024-03-04 11:30] VITALS: BP 128/79; PULSE 74; RESP 16; TEMP 97.9
--- NOTE | 2024-03-04 11:40 | P.PROGSL ---
Subjective DATE: 03/04/2024 FOLLOW UP VISIT. Patient with obstructive sleep apnea hypopnea syndrome return to sleep center for follow-up visit. Information from previous visit have been reviewed. Patient is using PAP equipment every night for the whole night, getting PAP supplies in time. The patient does not have significant problems with the mask, PAP unit and humidification. Arnot sleepiness scale is 3, which is normal. I checked information from PAP unit. PAP unit pressure 5-16, average 12.4 cm H2O. Usage is 100% for more then 4 hours, average 5.4 hours per night. Leak is 16 l/m, which is in acceptable range. Apnea Hypopnea Index is 5.1, which is normal. MEDICATIONS have been reviewed, please see below. During physical exam: GENERAL: A pleasant patient without any distress. VITAL SIGNS: Please see below, weight is 169 lbs. HEENT: PERRLA, EOMI.low position of soft palate, Mallapati 3. NECK: Supple. No JVD. LUNGS: Clear to percussion and to auscultation. Good air exchange. No wheezing or rhonchi. HEART: S1, S2 regular. ABDOMEN: Soft and nontender.[] EXTREMITIES: No clubbing or cyanosis. GRIPS: Awake, alert, and oriented x3. No focal deficit. Impressions: 1. Obstructive sleep apnea-hypopnea syndrome. Patient demonstrated great compliance with treatment, benefiting from treatment. 2. Hypertension. 3. Coronary artery disease status post stent insertion. 4. Mild obesity BMI 34.4, patient lost 3 pounds comparing with the previous visit. 5. Hypothyroidism. 6. Hyperlipidemia. 7. Status post cholecystectomy. Plan: 1. Continue using PAP equipment every night for the whole night. 2. Sleep hygiene with regular time in bed for at least 7.5-8 hours 3. PAP unit should stay lower then position of the head. 4. Advised patient to remove all remaining water from humidifier canister daily and make it dry after each usage. Refill canister with fresh distilled water before each usage. 5. Watching and losing weight. 6. Precautions related to driving. No driving if feel any sleepiness. 7. I will maintain prescription for PAP supplies including mask, tube, filters. 8. Follow up visit in 8 months or earlier if patient has any problems. Thank you very much for allowing me to participate in the management of your patient. Fausto Hatch MD, PhD, FAASM. Diplomat of [place] Board of Sleep Medicine, Sleep Medicine Board by [place] [employer] of Internal Medicine Credit Control Officer of [facility] [place] Objective - Vital Signs Vital Signs: Vital Signs Temp 97.9 F 03/04/24 11:30 Pulse 74 03/04/24 11:30 Resp 16 03/04/24 11:30 BP 128/79 03/04/24 11:30 Pulse Ox 97 03/04/24 11:30 FiO2 Intake & Output 03/03/24 03/04/24 03/04/24 18:59 06:59 18:59 Weight 76.657 kg Home Medications: Home Medications Medication Instructions Recorded Confirmed Type Aspirin 162 mg PO HS 03/06/14 03/04/24 History Cholecalciferol [Vitamin D3] 5,000 unit PO HS 03/06/14 03/04/24 History Citalopram Hydrobromide [CeleXA] 10 mg PO HS 03/06/14 03/04/24 History Levothyroxine Sodium [Synthroid] 50 mcg PO [id number] 03/06/14 03/04/24 History Metoprolol Tartrate [Lopressor] 12.5 mg PO BID 03/06/14 03/04/24 History Multivitamins, Thera [Multivitamin] 1 tab PO DAILY 03/06/14 03/04/24 History Nitroglycerin Sl Tabs [Nitrostat] 0.4 mg SUBLINGUAL Q5M PRN 03/06/14 01/01/19 History [place]-3 Fatty Acids/Fish Oil [Fish 3 cap PO DAILY 03/06/14 01/01/19 History Oil 1,000 mg Softgel] Vits A,C,E/Lutein/Minerals 1 tab PO HS 03/06/14 01/01/19 History [Ocuvite with Lutein Tablet] lisinopriL [Zestril] 10 mg PO HS 03/06/14 03/04/24 History Atorvastatin [Lipitor] 10 mg PO HS 05/21/18 03/04/24 History Lactobacillus Acidophilus 1 tab PO DAILY 05/21/18 01/01/19 History [Acidophilus] Ubidecarenone [Co Q-10] 100 mg PO DAILY 05/21/18 03/04/24 History Levothyroxine Sodium [Synthroid] 75 mcg PO SUT 12/29/18 03/04/24 History Pantoprazole Sodium [Protonix] 20 mg PO DAILY 12/29/18 03/04/24 History Semaglutide [Rybelsus] 7 mg PO DAILY 03/04/24 03/04/24 History
== END ==
LOC: 3 N SLEEP 11:03
PROVIDERS: ATTEND Internal Medicine
DX: G47.33 Obstructive sleep apnea (adult) (pediatric) (principal); I10 Essential (primary) hypertension; I25.10 Atherosclerotic heart disease of native coronary artery without angina pectoris; E66.9 Obesity, unspecified; E03.9 Hypothyroidism, unspecified; E78.5 Hyperlipidemia, unspecified; Z68.34 Body mass index [BMI] 34.0-34.9, adult; Z90.49 Acquired absence of other specified parts of digestive tract; Z88.8 Allergy status to other drugs, medicaments and biological substances
CPT/HCPCS: 99212

== ENCOUNTER → 2024-05-18 | Outpatient (CLI) | payer MEDICARE ==
--- NOTE | 2024-05-18 10:01 | MM ---
Reason for Exam: Screening (asymptomatic). Last mammogram was performed 1 year(s) and 1 month(s) ago. Patient History: Menarche at age 8. Patient has no children. Postmenopausal. Hormonal Contraceptives for 22 years from age 16 until age 38. Risk Values: Mine 5 year model risk: 2.0%. NCI Lifetime model risk: 7.6%. Prior Study Comparison: 04/09/2021 Bilateral Screening Mammogram, [facility]. 04/10/2022 Bilateral MG 3D screening mammo w/cad, [facility]. 04/22/2023 Bilateral MG 3D screening mammo w/cad, [facility]. Tissue Density: The breasts are heterogeneously dense, which may obscure small masses. Findings: Analyzed By CAD. Right breast: There is no suspicious group of microcalcifications or new suspicious mass. Benign-appearing calcifications right breast. Left breast: There is no suspicious group of microcalcifications or new suspicious mass. Benign-appearing calcifications left breast. Overall Assessment: Benign, BI-RAD 2 Management: Screening Mammogram of both breasts in [address] [facility] will attempt to contact patient to return for supplemental views and ultrasound if indicated. Patient should continue monthly self-breast exams. A clinical breast exam by your physician is recommended on an annual basis. This exam should not preclude additional follow-up of suspicious palpable abnormalities. Note on Mine scores and lifetime risk: 1. A Mine score greater than 3% is considered moderate risk. If this is the case, consider specialist referral to assess eligibility for a risk reducing agent. 2. If overall lifetime risk for the development of breast cancer is 20% or higher, the patient may qualify for future screening with alternating mammogram and breast MRI. [facility], , 05/18/2024 9:51 AM. Electronically signed and approved by: Lamberto Snow DO
== END | disposition home or self-care (01) ==
LOC: RADMAMWWP 08:41
PROVIDERS: ATTEND Internal Medicine Geriatric Medicine
DX: Z12.31 Encounter for screening mammogram for malignant neoplasm of breast (principal); R92.333 Mammographic heterogeneous density, bilateral breasts; Z78.0 Asymptomatic menopausal state; Z92.0 Personal history of contraception
CPT/HCPCS: 77063; 77067